=== PATIENT | female | born 1975 | race African-American/Black ===

== ENCOUNTER 2016-09-12 23:36 | Emergency (ER) | payer MEDICARE, MEDICAID ==
[2016-09-12] MEDS ORDERED: diPHENhydraMINE IV* 50 MG/ML 1 ml VIAL (BENADRYL) IV ONE (23:45)
[2016-09-12] MEDS ORDERED: methylPREDNISolone 125 MG* 2 ML VIAL IV ONE (23:45)
[2016-09-12] MEDS ORDERED: Famotidine IV* 10 MG/ML 2 ML (20 mg) ONE (23:46)
[2016-09-12] MEDS ORDERED: diPHENhydraMINE IV* 50 MG/ML 1 ml VIAL (BENADRYL) ONE (23:46)
[2016-09-12] MEDS ORDERED: methylPREDNISolone 125 MG* 2 ML VIAL ONE (23:46)
[2016-09-12] MEDS ORDERED: Famotidine IV* 10 MG/ML 2 ML (20 mg) IV SLOW PU ONE (23:46)
[2016-09-12] MEDS ORDERED: EPINEPHrine AMP 1 MG/ML IM ONE ×2 (23:50→23:53)
[2016-09-12] MEDS ORDERED: EPINEPHrine AMP 1 MG/ML ONE (23:51)
[2016-09-13] MEDS ORDERED: predniSONE TAB* 20 MG PO ONE (03:44)
[2016-09-13] MEDS ORDERED: Famotidine TAB* 20 MG PO ONE (03:45)
[2016-09-13 04:14] VITALS: BP 148/79
--- NOTE | 2016-09-13 07:55 | ED ---
Waqas Avila Rebecca, scribed for Andrea Rainey MD on 09/13/16 at 0000 . Allergic Reaction/Systemic - HPI Summary HPI Summary: Pt is a 41 y/o F who comes to ED p/w allergic reaction c/o difficulty swallowing and throat tightening. Pt reports that at approximately 2230 she bit into a taco and sx suddenly began and have been constant since onset. Took 2 Benadryl at home and has an Epi-Pen but did not use it. Sx aggravated by nothing , alleviated by epinephrine administered in the ED. Denies rash. Documented allergy to sesame oil and nuts. - History of Current Complaint Chief Complaint: EDAllergicReaction Time Seen by Provider: 09/12/16 23:47 Hx Obtained From: Patient Onset/Duration: Sudden Onset, Started hours ago, Still Present Timing: Constant Severity Currently: None Pain Intensity: 0 Pain Scale Used: 0-10 Numeric Aggravating Factor(s): Nothing Alleviating Factor(s): Epinephrine - In the ED Associated Signs And Symptoms: Positive: Throat Tightening, Other: - Difficulty swallowing - Allergies/Home Medications Allergies/Adverse Reactions: Allergies Allergy/AdvReac Type Severity Reaction Status Date / Time Sesame Oil Allergy Anaphylatic Verified 09/12/16 23:49 Shock nuts Allergy Anaphylatic Uncoded 09/12/16 23:49 Shock PMH/Surg Hx/FS Hx/Imm Hx Cardiovascular History: Denies: Hx Coronary Artery Disease Respiratory History: Reports: Hx Asthma, Hx Chronic Obstructive Pulmonary Disease (COPD), Hx Sleep Apnea, Other Respiratory Problems/Disorders - SLEEP APNEA - Surgical History Surgery Procedure, Year, and Place: Lung surgery, unsure what type Hx Anesthesia Reactions: No Infectious Disease History: Denies: Traveled Outside the [place] in Last 30 Days - Family History Known Family History: Positive: Cardiac Disease, Hypertension, Diabetes - Social History Alcohol Use: None Hx Substance Use: No Substance Use Type: Reports: None Hx Tobacco Use: No Smoking Status (MU): Never Smoked Tobacco Review of Systems Positive: Other - Difficulty swallowing, throat tightening Negative: Rash All Other Systems Reviewed And Are Negative: Yes Physical Exam - Summary Physical Exam Summary: eneral: well-appearing, no pain distress Skin: warm, color reflects adequate perfusion, dry Head: normal Eyes: EOMI, RADHA ENT: voice muffled, no stridor, swelling of the tongue and lips Neck: supple, nontender Respiratory: CTA, breath sounds present Cardiovascular: RRR Abdomen: soft, nontender Bowel: present Musculoskeletal: normal, strength/ROM intact Neurological: normal, sensory/motor intact, A&O x3 Psychological: affect/mood appropriate Triage Information Reviewed: Yes Vital Signs On Initial Exam: Initial Vitals Temp Pulse Resp BP Pulse Ox 99.7 F 97 16 168/95 97 09/12/16 23:37 09/12/16 23:37 09/12/16 23:37 09/12/16 23:37 09/12/16 23:37 Vital Signs Reviewed: Yes Diagnostics - Vital Signs Vital Signs Temp Pulse Resp BP Pulse Ox 09/12/16 23:37 99.7 F 97 16 168/95 97 - Laboratory Lab Statement: Any lab studies that have been ordered have been reviewed, and results considered in the medical decision making process. Re-Evaluation - Re-Evaluation First Eval Re-Evaluation Time: 03:30 Change: Improved Allergic Reaction Course/Dx - Course Course Of Treatment: CRITICAL CARE TIME LESS THAN 30 MINUTES. IMPROVED IN ED. DISCHARGE HOME STABLE. - Diagnoses Provider Diagnoses: Allergic reaction Discharge - Discharge Plan Condition: Stable Disposition: HOME Prescriptions: Famotidine TAB* [Pepcid 20 MG TAB*] 20 mg PO BID PRN #8 tab PRN Reason: Allergy Symptoms predniSONE TAB* [Deltasone TAB*] 40 mg PO DAILY PRN #8 tab PRN Reason: Allergy Symptoms Patient Education Materials: General Allergic Reaction (ED) Referrals: Denton Awad NP [Primary Care Provider] - Additional Instructions: FOLLOW UP WITH YOUR DOCTOR. TAKE BENADRYL 50MG EVERY 6 HOURS NEEDED. TAKE PEPCID 20MG TWICE A DAY NEEDED. TAKE PREDNISONE DIRECTED NEEDED. RETURN TO THE EMERGENCY DEPARTMENT FOR ANY WORSENING OF YOUR CONDITION; DIFFICULTY BREATHING OR SWALLOWING OR QUESTIONS OR CONCERNS. The documentation as recorded by the Waqas fernández Rebecca accurately reflects the service I personally performed and the decisions made by me, Andrea Rainey MD.
== END 2016-09-13 04:14 | disposition home or self-care (01) ==
LOC: ED 23:36
DX: T78.1XXA Other adverse food reactions, not elsewhere classified, initial encounter (principal); R13.10 Dysphagia, unspecified; X58.XXXA Exposure to other specified factors, initial encounter; Z91.010 Allergy to peanuts; Z91.018 Allergy to other foods; J44.9 Chronic obstructive pulmonary disease, unspecified
CPT/HCPCS: 96372; 96374; 96375; 99283; A9270-GY; J0171; J1200; J2930; J7512

== ENCOUNTER 2017-07-23 19:11 | Inpatient (IN) | payer MEDICARE, MEDICAID ==
[2017-07-23] MEDS ORDERED: Naloxone* 0.4 MG/ML 10 ML VIAL ONE (19:18)
[2017-07-23] MEDS ORDERED: Succinylcholine* 20 MG/ML 10 ML VIAL ONE (19:19)
[2017-07-23] MEDS ORDERED: Etomidate* 2 MG/ML 20 ML VIAL (40 MG) ONE (19:19)
[2017-07-23] MEDS ORDERED: Albuterol 0.5% CONC NEB.SOL* 5 MG/ML 20 ml BOT INH ONE (19:32)
[2017-07-23 19:36] LABS: Hematocrit 41 % (35-47); Hemoglobin 12.5 g/dl (12.0-16.0); Mean Corpuscular HGB Conc 31 g/dl (31-36); Mean Corpuscular Hemoglobin 25 pg (27-31); Mean Corpuscular Volume 83 fL (80-97); Mean Platelet Volume 9.3 um3 (7.4-10.4); Platelet Count 474 10^3/ul (150-450); Red Blood Count 4.93 10^6/ul (4.0-5.4); Red Cell Distribution Width 15 % (10.5-15); White Blood Count 16.4 10^3/ul (3.5-10.8)
[2017-07-23] MEDS ORDERED: Albuterol/Ipratropium NEB.SOL* Albuterol 2.5 MG/Ipratropium 0.5 MG 3 ML ONE (19:42)
[2017-07-23 19:52] LABS: EGFR Non-African American 65.5 (>60)
[2017-07-23] MEDS ORDERED: Propofol* 0 MG/0 ML BTL ONE (19:54)
[2017-07-23] MEDS ORDERED: Propofol* 200 ML ONE (19:56)
[2017-07-23] MEDS ORDERED: Albuterol 2.5 MG/3 ML NEB.SOL* (0.083%) ONE (19:58)
[2017-07-23] MEDS ORDERED: Propofol* 500 MG/50 ML BTL IV SCH (20:00)
[2017-07-23] MEDS ORDERED: fentaNYL* 50 MCG/ML 2 ML VIAL (100 MCG VIAL) ONE (20:00)
[2017-07-23] MEDS ORDERED: Propofol* 10 MG/ML 100 ML BTL ONE (20:00)
[2017-07-23] MEDS ORDERED: Albuterol/Ipratropium NEB.SOL* Albuterol 2.5 MG/Ipratropium 0.5 MG 3 ML INH ONE (20:02)
[2017-07-23] MEDS ORDERED: Albuterol 2.5 MG/3 ML NEB.SOL* (0.083%) INH ONE (20:02)
[2017-07-23 20:03] LABS: ABS Basophils 0.1 10^3/ul (0-0.2); ABS Eosinophils 0 10^3/ul (0-0.6); ABS Lymphocytes 6.8 10^3/ul (1.0-4.8); ABS Monocytes 1.1 10^3/ul (0-0.8); ABS Neutrophils 8.3 10^3/ul (1.5-7.7); ABS Nucleated RBC 0 10^3/ul; Eosinophil % 0 % (0-6); Lymphocyte % 41.5 % (25-47); Nucleated Red Blood Cells % 0
[2017-07-23] MEDS ORDERED: Midazolam* 1 MG/ML 2 ML VIAL (2 MG) ONE (20:12)
[2017-07-23] MEDS: Midazolam* 1 MG/ML 2 ML VIAL (2 MG) IV PRN ×2 (20:16→22:42)
[2017-07-23] MEDS ORDERED: NS 0.9% 1000 ML*IV.FLUID IV ONE (20:17)
[2017-07-23] MEDS ORDERED: methylPREDNISolone 125 MG* 2 ML VIAL IV ONE (20:20)
[2017-07-23 20:38] LABS: Urine Appearance Cloudy; Urine Blood 1+ (Negative); Urine Color Yellow; Urine Ketones Negative (Negative); Urine Protein 3+(>=500 mg/dL) (Negative); Urine Specific Gravity 1.011 (1.010-1.030); Urine Urobilinogen Negative (Negative)
--- NOTE | 2017-07-23 20:44 | RAD ---
INDICATION: Intubated. Respiratory failure COMPARISON: May 03, 2015 TECHNIQUE: An AP portable view obtained at 1925 hours is submitted. FINDINGS: Bones/Soft Tissues: There are no acute bony findings. There is an endotracheal tube in satisfactory position. Nasogastric tube passes normally through the mediastinum. Cardiomediastinal: The cardiomediastinal silhouette is mildly prominent. Lungs: There are no infiltrates. Pleura: There are no pleural effusions. Other: None IMPRESSION: NO ACTIVE DISEASE. ENDOTRACHEAL TUBE IN SATISFACTORY POSITION.
[2017-07-23] MEDS: NS 0.9% 1000 ML* 1,000 ML IV SCH (21:04)
[2017-07-23] MEDS ORDERED: NS 0.9% 500 ML* 500 ML IV ONE (21:05)
[2017-07-23] MEDS: Albuterol 2.5 MG/3 ML NEB.SOL* (0.083%) INH SCH (21:23)
[2017-07-23] MEDS ORDERED: Omeprazole CAP* 20 MG PO SCH (22:00)
[2017-07-23] MEDS: Propofol* 100 ML IV SCH (22:14)
[2017-07-23] MEDS: methylPREDNISolone SOD 40 MG* 1 ML VIAL IV SCH (22:40)
[2017-07-23] MEDS ORDERED: Dextrose 50% Syringe 50 ML* 25 GM/50 ML SYRINGE IV PUSH PRN (23:37)
--- NOTE | 2017-07-23 23:37 | HP ---
H&P (Free Text) History and Physical: History and Physical - Critical Care Limitations in history/physical: intubated/sedated; history from family, chart HPI: 42y F pmhx of Severe persistent asthma, obesity, YOLANDA on CPAP, s/p Lap- banding; brought in by family due to severe respiratory distress. Sons found her at home in distress, placed her in car and brought her to ER. Before leaving they gave her a shot of SC epinephrine. They are unsure if she had any fever/chills/n/v or recent illness. They are unclear of cough/sob. When reaching ER, she was taken out of care and was unresponsive, possibly cyanotic. Brought into ER and a cardiac arrest code was called, Sons did do some CPR prior to arrival possibly but no CPR needed in ER, so true cardiac arrest unclear. In ER, she had a pulse, bagged, sats in 90s, but poor mental status. Given sedation/induction and intubated by ER physician with glidescope. I attended in the ER, she had diffuse bilateral poor air entry but diffuse long expiratory wheezing+. Started on propofol for sedation, given nebulizer. ABG shows metabolic acidosis compensated partly by respiratory alkalosis. No documented hypoxia. CXR with ett above jonathan, bilateral clear lung troncoso, minimal secretions+ ROS: limited due to patient intubated/sedated PMHx: Severe persistent asthma, obesity, YOLANDA on CPAP PSHx: lung surgery?, tubal ligation, gastric lap-banding Family History: DM, HTN, cardiac disease Social History: Alcohol-none, Smoking-none, Drug use-none Allergies: Allergies Allergy/AdvReac Type Severity Reaction Status Date / Time almond Allergy Anaphylatic Verified 07/23/17 20:18 Shock sesame oil Allergy Anaphylatic Verified 07/23/17 20:18 Shock Tree Nuts Allergy Anaphylatic Verified 04/29/17 12:41 Shock nuts Allergy Anaphylatic Uncoded 04/29/17 12:41 Shock Home Medications: RX: Albuterol 2.5MG/3ML (0.083%)* [Ventolin 2.5 MG/3 ML NEB.QUYNH*] 1 neb.soln INH Q4HR PRN 03/02/16 [History Confirmed 02/12/17] RX: Meclizine TAB* [Antivert 12.5 TAB*] 25 mg PO TID PRN 03/02/16 [History Confirmed 02/12/17] Fluticasone-Salmeterol 500-50* [Advair Diskus 500-50*] 1 puff INH BID #1 diskus 03/03/16 [Rx Confirmed 02/12/17] RX: Albuterol HFA INHALER* [Ventolin HFA Inhaler*] 1 puff INH Q6H PRN #1 mdi [Rx Confirmed 02/12/17] RX: Ferrous Sulfate TAB* 325 mg PO BID #60 tab 03/03/16 [Rx Confirmed 02/12/17] RX: Montelukast Sodium TAB* [Singulair 10 MG TAB*] 10 mg PO DAILY #30 tab [Rx Confirmed 02/12/17] RX: Theophylline TAB* [Kumar Dur 300 MG*] 300 mg PO BID #60 tab.sa 03/03/16 [Rx Confirmed 02/12/17] RX: Tiotropium CAP.INH* [Spiriva CAP.INH*] 1 cap.inh INH DAILY #30 cap.inh 03/03 [Rx Confirmed 02/12/17] Famotidine TAB* [Pepcid 20 MG TAB*] 20 mg PO BID PRN #8 tab 09/13/16 [Rx Confirmed 02/12/17] RX: ARIPiprazole TAB* [Abilify TAB*] 5 mg PO DAILY 01/12/17 [History Confirmed 02/12/17] Sertraline* [Zoloft*] 100 mg PO DAILY 01/12/17 [History Confirmed 02/12/17] Tele: NSR Vitals: Vital Signs Temp 98.1 F 07/23/17 23:01 Pulse 79 07/23/17 23:01 Resp 14 07/23/17 23:00 BP 116/68 07/23/17 23:01 Pulse Ox 96 07/23/17 23:01 Intake & Output 07/23/17 07/23/17 07/24/17 06:59 18:59 06:59 Intake Total 1665 Output Total 350 Balance 1315 Weight 264 lb 8.875 oz Intake: IV Fluids 1555 NS (0.9%) 555 Medicated IV 110 CC - Propofol/Diprivan 110 Output: Chan 350 O2/Vent: AC 50%, rr 16, tv 400 Infusions: NS, propofol Current Medications: Albuterol (Ventolin 2.5 Mg/3 Ml Neb.Quynh*) 2.5 mg INH Q4H [facility] Last Admin: 07/23/17 21:23 Dose: 2.5 mg Propofol (Diprivan*) 100 mls @ 28.8 mls/hr IV .(Initial Rate) BRUCE; 40 MCG/KG/ MIN PRN Reason: Protocol Last Admin: 07/23/17 22:14 Dose: 57.6 mls/hr Sodium Chloride (Ns 0.9% 1000 Ml*) 1,000 mls @ 75 mls/hr IV PER RATE [facility] Last Admin: 07/23/17 21:04 Dose: 75 mls/hr Methylprednisolone Sodium Succinate (Solu-Medrol 40 Mg) 60 mg IV Q8H [facility] Last Admin: 07/23/17 22:40 Dose: 60 mg Midazolam HCl (Versed 2mg/2ml*) 2 mg IV Q2H PRN PRN Reason: resp distress Stop: 07/26/17 19:58 Last Admin: 07/23/17 22:42 Dose: 2 mg Pantoprazole Sodium (Protonix Iv*) 40 mg IV BEDTIME BRUCE Physical Exam: General: intubated, sedated, obese Head: normocephalic, atraumatic HEENT: no pallor, no icterus, moist mucous membranes Neck: soft, supple, no jvd CVS: normal rate, regular, no murmur Resp: distant air entry bilaterally, no rhales, bilateral diffuse exp wheeze++, no rhonchi, +acc muscle use while intubated Abdomen: soft, nontender, nondistended, bowel sounds present Ext: pulses+, warm, no edema Skin: intact, no breakdown, no dryness Neuro: intubated, sedated, moving all ext spontaneously; small bilaterally reactive pupils+ Labs: Laboratory Results - last 24 hr 07/23/17 07/23/17 07/23/17 19:15 19:15 19:20 WBC 16.4 H RBC 4.93 Hgb 12.5 Hct 41 MCV 83 MCH 25 L MCHC 31 RDW 15 Plt Count 474 H MPV 9.3 Neut % (Auto) 51.0 Lymph % (Auto) 41.5 [facility] % (Auto) 6.9 Eos % (Auto) 0 Baso % (Auto) 0.6 Absolute Neuts (auto) 8.3 H Absolute Lymphs (auto) 6.8 H Absolute Monos (auto) 1.1 H Absolute Eos (auto) 0 Absolute Basos (auto) 0.1 Absolute Nucleated RBC 0 Nucleated RBC % 0 Patient Temperature ABG pH ABG pH (Temp Correct) ABG pCO2 ABG pCO2 (Temp Corrct ABG pO2 ABG pO2 (Temp Correct ABG HCO3 ABG O2 Saturation ABG Base Excess Respiration Rate O2 Delivery Device Ventilator Type Vent Mode FiO2 Inspiratory Time PEEP Pressure Support Pressure Control EPAP IPAP BiPAP Sodium 137 L Potassium 3.7 Chloride 100 L Carbon Dioxide 22 Anion Gap 15 H BUN 11 Creatinine 0.93 Est GFR ( Amer) 84.2 Est GFR (Non-Af Amer) 65.5 BUN/Creatinine Ratio 11.8 Glucose 270 H POC Glucose (mg/dL) 278 H Lactic Acid Calcium 8.9 Total Bilirubin 0.20 AST 35 ALT 35 Alkaline Phosphatase 61 Troponin I 0.00 Total Protein 7.1 Albumin 4.1 Globulin 3.0 Albumin/Globulin Ratio 1.4 Urine Color Urine Appearance Urine pH Ur Specific [place] Urine Protein Urine Ketones Urine Blood Urine Nitrate Urine Bilirubin Urine Urobilinogen Ur Leukocyte Esterase Urine WBC (Auto) Urine RBC (Auto) Ur Squamous Epith Cells Urine Bacteria Urine Glucose Urine Opiates Screen Ur Barbiturates Screen Ur Phencyclidine Scrn Ur Amphetamines Screen U Benzodiazepines Scrn Urine Cocaine Screen U Cannabinoids Screen 07/23/17 07/23/17 07/23/17 19:25 20:10 20:12 WBC RBC Hgb Hct MCV MCH MCHC RDW Plt Count MPV Neut % (Auto) Lymph % (Auto) [facility] % (Auto) Eos % (Auto) Baso % (Auto) Absolute Neuts (auto) Absolute Lymphs (auto) Absolute Monos (auto) Absolute Eos (auto) Absolute Basos (auto) Absolute Nucleated RBC Nucleated RBC % Patient Temperature Not Reportable ABG pH 7.17 L* ABG pH (Temp Correct) Not Reportable ABG pCO2 58 H ABG pCO2 (Temp Corrct Not Reportable ABG pO2 215 H ABG pO2 (Temp Correct Not Reportable ABG HCO3 19.0 ABG O2 Saturation 99.6 H ABG Base Excess -7.6 L Respiration Rate 10 O2 Delivery Device vent Ventilator Type 450 Vent Mode cmv FiO2 50 Inspiratory Time 0.8 PEEP 5 Pressure Support Not Reportable Pressure Control Not Reportable EPAP Not Reportable IPAP Not Reportable BiPAP Not Reportable Sodium Potassium Chloride Carbon Dioxide Anion Gap BUN Creatinine Est GFR ( Amer) Est GFR (Non-Af Amer) BUN/Creatinine Ratio Glucose POC Glucose (mg/dL) Lactic Acid 10.3 H* Calcium Total Bilirubin AST ALT Alkaline Phosphatase Troponin I Total Protein Albumin Globulin Albumin/Globulin Ratio Urine Color Yellow Urine Appearance Cloudy Urine pH 6.0 Ur Specific [place] 1.011 Urine Protein 3+(>=500 mg/dl) A Urine Ketones Negative Urine Blood 1+ A Urine Nitrate Negative Urine Bilirubin Negative Urine Urobilinogen Negative Ur Leukocyte Esterase Negative Urine WBC (Auto) 2+(11-20/hpf) A Urine RBC (Auto) 2+(6-10/hpf) A Ur Squamous Epith Cells Present A Urine Bacteria Absent Urine Glucose 3+(>=500 mg/dl) A Urine Opiates Screen Ur Barbiturates Screen Ur Phencyclidine Scrn Ur Amphetamines Screen U Benzodiazepines Scrn Urine Cocaine Screen U Cannabinoids Screen 07/23/17 20:12 WBC RBC Hgb Hct MCV MCH MCHC RDW Plt Count MPV Neut % (Auto) Lymph % (Auto) [facility] % (Auto) Eos % (Auto) Baso % (Auto) Absolute Neuts (auto) Absolute Lymphs (auto) Absolute Monos (auto) Absolute Eos (auto) Absolute Basos (auto) Absolute Nucleated RBC Nucleated RBC % Patient Temperature ABG pH ABG pH (Temp Correct) ABG pCO2 ABG pCO2 (Temp Corrct ABG pO2 ABG pO2 (Temp Correct ABG HCO3 ABG O2 Saturation ABG Base Excess Respiration Rate O2 Delivery Device Ventilator Type Vent Mode FiO2 Inspiratory Time PEEP Pressure Support Pressure Control EPAP IPAP BiPAP Sodium Potassium Chloride Carbon Dioxide Anion Gap BUN Creatinine Est GFR ( Amer) Est GFR (Non-Af Amer) BUN/Creatinine Ratio Glucose POC Glucose (mg/dL) Lactic Acid Calcium Total Bilirubin AST ALT Alkaline Phosphatase Troponin I Total Protein Albumin Globulin Albumin/Globulin Ratio Urine Color Urine Appearance Urine pH Ur Specific [place] Urine Protein Urine Ketones Urine Blood Urine Nitrate Urine Bilirubin Urine Urobilinogen Ur Leukocyte Esterase Urine WBC (Auto) Urine RBC (Auto) Ur Squamous Epith Cells Urine Bacteria Urine Glucose Urine Opiates Screen None detected Ur Barbiturates Screen None detected Ur Phencyclidine Scrn None detected Ur Amphetamines Screen None detected U Benzodiazepines Scrn None detected Urine Cocaine Screen None detected U Cannabinoids Screen None detected Imaging: cxr 07/23 ett above jonathan, no infiltrates/effusions/ptx Assessment: 42y F pmhx of Severe persistent asthma, obesity, YOLANDA on CPAP, s/p Lap-banding; brought in by family due to severe respiratory distress. Sons found her at home in distress, placed her in car and brought her to ER. Before leaving they gave her a shot of [place] epinephrine. They are unsure if she had any fever/chills/n/v or recent illness. They are unclear of cough/sob. When reaching ER, she was taken out of care and was unresponsive, possibly cyanotic. Brought into ER and a cardiac arrest code was called, Sons did do some CPR prior to arrival possibly but no CPR needed in ER, so true cardiac arrest unclear. In ER, she had a pulse, bagged, sats in 90s, but poor mental status. Given sedation/induction and intubated by ER physician with glidescope. I attended in the ER, she had diffuse bilateral poor air entry but diffuse long expiratory wheezing+. -Acute hypercapneic respiratory failure -Asthma Exaccerbation -Lactic acidosis from respiratory failure -Leukocytosis Obesity YOLANDA Plan: Neuro- currently sedated on propofol and prn versed. Likely was unresponsive due to metabolic encephalopathy from metabolic/respiratory acidosis. Cont propofol tonight, plan to wean in AM. Fall prec. CVS- BP stable now. HR stable, NSR. IVF NS 100cc/hour for now. Blood cultures+, urine culture. Appears euvolemic otherwise. Check troponin levels. Resp- cont mechanical ventilation, fio2 req decreasing. Currently compensated metabolic acidosis, has resp alkalosis incomplete. Send blood and sputum culture. Solumedrol 125mg iv x1, then 60mg iv q8h. Bronchodilators q4h RTC. Check influenza. No infiltrate on CXR, send sputum culture. IV abx helpd for now. ID- afebrile. Wbc 16. Reactive process? Urinalysis without LE. CXR clear. Started on steroids now. Would cont to monitor given stable hemodynamics. will r /o underlying infectious etiology. GI- NPO. GI prophlaxis while on steroids. Renal- Cr okay. K okay. Metabolic acidosis from high LA which is prob from poor perfusion and hypoxia from respiratory failure. Cont nebs and steroids. Cont LR infusion as prior. Heme- hg okay, plt okay. Check INR in AM. Endo- hyperglycemia with glycosuria+. Check hga1c and TSH. Start insulin sliding scale for now, may need insulin IV. Musculsk- pressure ulcer proph. Wounds- none Nutrition- NPO for now DVT prophylaxis: SCDs GI prophylaxis: PPI Central Line: no Arterial Line: no Chan Cathetor: yes 07/23 Disposition: admit to ICU for respiratory failure expected length of stay >2 midnights Code Status: full code Total Critical Care time is 60 minutes, excluding procedures/teaching Juliocesar Villegas MD Civil Service Clerk (Electronically Signed)
[2017-07-24] MEDS: Propofol* 100 ML IV SCH ×10 (00:27→22:08)
[2017-07-24] MEDS: Pantoprazole IV* 40 MG IV SCH ×2 (01:01→20:30)
[2017-07-24] MEDS: Chlorhexidine MOUTHWASH 0.12%* 15 ML UDC TOPICAL SCH ×6 (01:01→20:30)
[2017-07-24] MEDS: Albuterol 2.5 MG/3 ML NEB.SOL* (0.083%) INH SCH ×7 (01:24→23:51)
[2017-07-24] MEDS: Insulin LISPRO* 1 UNITS UNIT SUBCUT SCH ×6 (01:31→20:17)
[2017-07-24] MEDS: Midazolam* 1 MG/ML 2 ML VIAL (2 MG) IV PRN ×2 (02:11→19:54)
[2017-07-24] MEDS: NS 0.9% 1000 ML* 1,000 ML IV SCH ×2 (03:36→18:11)
[2017-07-24] MEDS ORDERED: Dexmedetomidine* 400 MCG in NS 0.9% 100 ML* 96 ML IVPB SCH (04:00)
[2017-07-24] MEDS: methylPREDNISolone SOD 40 MG* 1 ML VIAL IV SCH ×3 (04:41→20:30)
[2017-07-24 06:17] LABS: Hematocrit 35 % (35-47); Hemoglobin 11.2 g/dl (12.0-16.0); Mean Corpuscular HGB Conc 32 g/dl (31-36); Mean Corpuscular Hemoglobin 25 pg (27-31); Mean Corpuscular Volume 79 fL (80-97); Mean Platelet Volume 9.1 um3 (7.4-10.4); Platelet Count 344 10^3/ul (150-450); Red Blood Count 4.41 10^6/ul (4.0-5.4); Red Cell Distribution Width 15 % (10.5-15)
[2017-07-24 06:27] LABS: EGFR Non-African American 110.7 (>60)
[2017-07-24 06:33] LABS: INR 0.94 (0.77-1.02)
--- NOTE | 2017-07-24 10:25 | PN ---
Progress Note - Progress Note Date of Service: 07/24/17 Note: Progress Note - Critical Care 24 hour events: -admitted to ICU via ER, resp failure, intubated in ER -overnight remains intubated, on increased sedation for restless ness -no sig overnight events otherwise, BP stable, no fevers, no diarrhea -family at bedside and discussed history -currently patient sedated on propofol and precedex Tele: NSR Vitals: Vital Signs Temp 98.6 F 07/24/17 10:00 Pulse 59 07/24/17 10:00 Resp 26 07/24/17 10:00 BP 103/82 07/24/17 10:00 Pulse Ox 98 07/24/17 10:00 Intake & Output 07/23/17 07/24/17 07/24/17 18:59 06:59 18:59 Intake Total 2652 Output Total 1035 510 Balance 1617 -510 Weight 255 lb 4.725 oz Intake: IV Fluids 2153 NS (0.9%) 1153 Medicated IV 499 CC - Dexmedetomidine/ 18 Precedex CC - Propofol/Diprivan 481 Output: Chan 1035 510 O2/Vent: AC 50%, rr 16, tv 400 Infusions: NS, propofol, precedex Current Medications: Albuterol (Ventolin 2.5 Mg/3 Ml Neb.Tiffanie*) 2.5 mg INH Q4H BRUCE Last Admin: 07/24/17 08:11 Dose: 2.5 mg Chlorhexidine Gluconate (Peridex Mouth Wash 0.12%*) 15 ml TOPICAL Q4H BRUCE Last Admin: 07/24/17 07:46 Dose: 15 ml Dextrose (D50w Syringe 50 Ml*) 12.5 gm IV PUSH .FOR FS < 60 - SS PRN PRN Reason: FS < 60 Propofol (Diprivan*) 100 mls @ 28.8 mls/hr IV .(Initial Rate) BRUCE; 40 MCG/KG/ MIN PRN Reason: Protocol Last Admin: 07/24/17 08:59 Dose: 40.3 mls/hr Sodium Chloride (Ns 0.9% 1000 Ml*) 1,000 mls @ 75 mls/hr IV PER RATE BRUCE Last Admin: 07/24/17 03:36 Dose: 75 mls/hr Dexmedetomidine HCl 400 mcg/ (Sodium Chloride) 100 mls @ 14.08 mls/hr IVPB .( Initial Rate) BRUCE; 0.5 MCG/KG/HR PRN Reason: Protocol Last Admin: 07/24/17 04:55 Dose: 14.08 mls/hr Insulin Human Lispro (Humalog*) 0 units SUBCUT FS Q4 ICU BRUCE PRN Reason: Protocol Last Admin: 07/24/17 07:56 Dose: 3 units Methylprednisolone Sodium Succinate (Solu-Medrol 40 Mg) 60 mg IV Q8H BRUCE Last Admin: 07/24/17 04:41 Dose: 60 mg Midazolam HCl (Versed 2mg/2ml*) 2 mg IV Q2H PRN PRN Reason: resp distress Stop: 07/26/17 19:58 Last Admin: 07/24/17 02:11 Dose: 2 mg Pantoprazole Sodium (Protonix Iv*) 40 mg IV BEDTIME [facility] Last Admin: 07/24/17 01:01 Dose: 40 mg Physical Exam: General: intubated, sedated, obese Head: normocephalic, atraumatic HEENT: no pallor, no icterus, moist mucous membranes Neck: soft, supple, no jvd CVS: normal rate, regular, no murmur Resp: bilateral air entry, no rhales/rhonchi/wheezing, no acc muscle use Abdomen: soft, nontender, nondistended, bowel sounds present Ext: pulses+, warm, no edema Skin: intact, no breakdown, no dryness Neuro: intubated, sedated, pupils reactive; on lower sedation wakes and follows commands Labs: Laboratory Results - last 24 hr 07/23/17 07/23/17 07/23/17 19:15 19:15 19:20 WBC 16.4 H RBC 4.93 Hgb 12.5 Hct 41 MCV 83 MCH 25 L MCHC 31 RDW 15 Plt Count 474 H MPV 9.3 Neut % (Auto) 51.0 Lymph % (Auto) 41.5 [place] % (Auto) 6.9 Eos % (Auto) 0 Baso % (Auto) 0.6 Absolute Neuts (auto) 8.3 H Absolute Lymphs (auto) 6.8 H Absolute Monos (auto) 1.1 H Absolute Eos (auto) 0 Absolute Basos (auto) 0.1 Absolute Nucleated RBC 0 Nucleated RBC % 0 INR (Anticoag Therapy) APTT Patient Temperature ABG pH ABG pH (Temp Correct) ABG pCO2 ABG pCO2 (Temp Corrct ABG pO2 ABG pO2 (Temp Correct ABG HCO3 ABG O2 Saturation ABG Base Excess Respiration Rate O2 Delivery Device Ventilator Type Vent Mode FiO2 Inspiratory Time PEEP Pressure Support Pressure Control EPAP IPAP BiPAP Sodium 137 L Potassium 3.7 Chloride 100 L Carbon Dioxide 22 Anion Gap 15 H BUN 11 Creatinine 0.93 Est GFR ( Amer) 84.2 Est GFR (Non-Af Amer) 65.5 BUN/Creatinine Ratio 11.8 Glucose 270 H POC Glucose (mg/dL) 278 H Lactic Acid Calcium 8.9 Total Bilirubin 0.20 AST 35 ALT 35 Alkaline Phosphatase 61 Troponin I 0.00 Total Protein 7.1 Albumin 4.1 Globulin 3.0 Albumin/Globulin Ratio 1.4 TSH Urine Color Urine Appearance Urine pH Ur Specific [place] Urine Protein Urine Ketones Urine Blood Urine Nitrate Urine Bilirubin Urine Urobilinogen Ur Leukocyte Esterase Urine WBC (Auto) Urine RBC (Auto) Ur Squamous Epith Cells Urine Bacteria Urine Glucose Urine Opiates Screen Ur Barbiturates Screen Ur Phencyclidine Scrn Ur Amphetamines Screen U Benzodiazepines Scrn Urine Cocaine Screen U Cannabinoids Screen Influenza A (Rapid) Influenza B (Rapid) 07/23/17 07/23/17 07/23/17 19:25 20:10 20:12 WBC RBC Hgb Hct MCV MCH MCHC RDW Plt Count MPV Neut % (Auto) Lymph % (Auto) [place] % (Auto) Eos % (Auto) Baso % (Auto) Absolute Neuts (auto) Absolute Lymphs (auto) Absolute Monos (auto) Absolute Eos (auto) Absolute Basos (auto) Absolute Nucleated RBC Nucleated RBC % INR (Anticoag Therapy) APTT Patient Temperature Not Reportable ABG pH 7.17 L* ABG pH (Temp Correct) Not Reportable ABG pCO2 58 H ABG pCO2 (Temp Corrct Not Reportable ABG pO2 215 H ABG pO2 (Temp Correct Not Reportable ABG HCO3 19.0 ABG O2 Saturation 99.6 H ABG Base Excess -7.6 L Respiration Rate 10 O2 Delivery Device vent Ventilator Type 450 Vent Mode cmv FiO2 50 Inspiratory Time 0.8 PEEP 5 Pressure Support Not Reportable Pressure Control Not Reportable EPAP Not Reportable IPAP Not Reportable BiPAP Not Reportable Sodium Potassium Chloride Carbon Dioxide Anion Gap BUN Creatinine Est GFR ( Amer) Est GFR (Non-Af Amer) BUN/Creatinine Ratio Glucose POC Glucose (mg/dL) Lactic Acid 10.3 H* Calcium Total Bilirubin AST ALT Alkaline Phosphatase Troponin I Total Protein Albumin Globulin Albumin/Globulin Ratio TSH Urine Color Yellow Urine Appearance Cloudy Urine pH 6.0 Ur Specific [place] 1.011 Urine Protein 3+(>=500 mg/dl) A Urine Ketones Negative Urine Blood 1+ A Urine Nitrate Negative Urine Bilirubin Negative Urine Urobilinogen Negative Ur Leukocyte Esterase Negative Urine WBC (Auto) 2+(11-20/hpf) A Urine RBC (Auto) 2+(6-10/hpf) A Ur Squamous Epith Cells Present A Urine Bacteria Absent Urine Glucose 3+(>=500 mg/dl) A Urine Opiates Screen Ur Barbiturates Screen Ur Phencyclidine Scrn Ur Amphetamines Screen U Benzodiazepines Scrn Urine Cocaine Screen U Cannabinoids Screen Influenza A (Rapid) Influenza B (Rapid) 07/23/17 07/24/17 07/24/17 20:12 00:00 00:50 WBC RBC Hgb Hct MCV MCH MCHC RDW Plt Count MPV Neut % (Auto) Lymph % (Auto) [place] % (Auto) Eos % (Auto) Baso % (Auto) Absolute Neuts (auto) Absolute Lymphs (auto) Absolute Monos (auto) Absolute Eos (auto) Absolute Basos (auto) Absolute Nucleated RBC Nucleated RBC % INR (Anticoag Therapy) APTT Patient Temperature Not Reportable ABG pH 7.30 L ABG pH (Temp Correct) Not Reportable ABG pCO2 53 H ABG pCO2 (Temp Corrct Not Reportable ABG pO2 199 H ABG pO2 (Temp Correct Not Reportable ABG HCO3 24.2 ABG O2 Saturation 99.4 H ABG Base Excess -0.9 Respiration Rate 10 O2 Delivery Device vent Ventilator Type 450 Vent Mode Cmv FiO2 50 Inspiratory Time 0.8 PEEP 5 Pressure Support Not Reportable Pressure Control Not Reportable EPAP Not Reportable IPAP Not Reportable BiPAP Not Reportable Sodium Potassium Chloride Carbon Dioxide Anion Gap BUN Creatinine Est GFR ( Amer) Est GFR (Non-Af Amer) BUN/Creatinine Ratio Glucose POC Glucose (mg/dL) Lactic Acid 1.0 Calcium Total Bilirubin AST ALT Alkaline Phosphatase Troponin I Total Protein Albumin Globulin Albumin/Globulin Ratio TSH Urine Color Urine Appearance Urine pH Ur Specific [place] Urine Protein Urine Ketones Urine Blood Urine Nitrate Urine Bilirubin Urine Urobilinogen Ur Leukocyte Esterase Urine WBC (Auto) Urine RBC (Auto) Ur Squamous Epith Cells Urine Bacteria Urine Glucose Urine Opiates Screen None detected Ur Barbiturates Screen None detected Ur Phencyclidine Scrn None detected Ur Amphetamines Screen None detected U Benzodiazepines Scrn None detected Urine Cocaine Screen None detected U Cannabinoids Screen None detected Influenza A (Rapid) Influenza B (Rapid) 07/24/17 07/24/17 07/24/17 00:50 01:08 04:08 WBC RBC Hgb Hct MCV MCH MCHC RDW Plt Count MPV Neut % (Auto) Lymph % (Auto) [place] % (Auto) Eos % (Auto) Baso % (Auto) Absolute Neuts (auto) Absolute Lymphs (auto) Absolute Monos (auto) Absolute Eos (auto) Absolute Basos (auto) Absolute Nucleated RBC Nucleated RBC % INR (Anticoag Therapy) APTT Patient Temperature ABG pH ABG pH (Temp Correct) ABG pCO2 ABG pCO2 (Temp Corrct ABG pO2 ABG pO2 (Temp Correct ABG HCO3 ABG O2 Saturation ABG Base Excess Respiration Rate O2 Delivery Device Ventilator Type Vent Mode FiO2 Inspiratory Time PEEP Pressure Support Pressure Control EPAP IPAP BiPAP Sodium Potassium Chloride Carbon Dioxide Anion Gap BUN Creatinine Est GFR ( Amer) Est GFR (Non-Af Amer) BUN/Creatinine Ratio Glucose POC Glucose (mg/dL) 138 H 151 H Lactic Acid Calcium Total Bilirubin AST ALT Alkaline Phosphatase Troponin I 0.11 H* Total Protein Albumin Globulin Albumin/Globulin Ratio TSH Urine Color Urine Appearance Urine pH Ur Specific [place] Urine Protein Urine Ketones Urine Blood Urine Nitrate Urine Bilirubin Urine Urobilinogen Ur Leukocyte Esterase Urine WBC (Auto) Urine RBC (Auto) Ur Squamous Epith Cells Urine Bacteria Urine Glucose Urine Opiates Screen Ur Barbiturates Screen Ur Phencyclidine Scrn Ur Amphetamines Screen U Benzodiazepines Scrn Urine Cocaine Screen U Cannabinoids Screen Influenza A (Rapid) Influenza B (Rapid) 07/24/17 07/24/17 07/24/17 05:03 05:35 05:53 WBC RBC Hgb Hct MCV MCH MCHC RDW Plt Count MPV Neut % (Auto) Lymph % (Auto) [place] % (Auto) Eos % (Auto) Baso % (Auto) Absolute Neuts (auto) Absolute Lymphs (auto) Absolute Monos (auto) Absolute Eos (auto) Absolute Basos (auto) Absolute Nucleated RBC Nucleated RBC % INR (Anticoag Therapy) 0.94 APTT 27.5 Patient Temperature Not Reportable ABG pH 7.31 L ABG pH (Temp Correct) Not Reportable ABG pCO2 51 H ABG pCO2 (Temp Corrct Not Reportable ABG pO2 193 H ABG pO2 (Temp Correct Not Reportable ABG HCO3 24.2 ABG O2 Saturation 99.8 H ABG Base Excess -1.0 Respiration Rate 10 O2 Delivery Device vent Ventilator Type 450 Vent Mode Cmv FiO2 50 Inspiratory Time 0.8 PEEP 5 Pressure Support Not Reportable Pressure Control Not Reportable EPAP Not Reportable IPAP Not Reportable BiPAP Not Reportable Sodium Potassium Chloride Carbon Dioxide Anion Gap BUN Creatinine Est GFR ( Amer) Est GFR (Non-Af Amer) BUN/Creatinine Ratio Glucose POC Glucose (mg/dL) Lactic Acid Calcium Total Bilirubin AST ALT Alkaline Phosphatase Troponin I Total Protein Albumin Globulin Albumin/Globulin Ratio TSH Urine Color Urine Appearance Urine pH Ur Specific [place] Urine Protein Urine Ketones Urine Blood Urine Nitrate Urine Bilirubin Urine Urobilinogen Ur Leukocyte Esterase Urine WBC (Auto) Urine RBC (Auto) Ur Squamous Epith Cells Urine Bacteria Urine Glucose Urine Opiates Screen Ur Barbiturates Screen Ur Phencyclidine Scrn Ur Amphetamines Screen U Benzodiazepines Scrn Urine Cocaine Screen U Cannabinoids Screen Influenza A (Rapid) Negative Influenza B (Rapid) Negative 07/24/17 07/24/17 07/24/17 05:53 05:53 07:50 WBC 14.0 H RBC 4.41 Hgb 11.2 L Hct 35 MCV 79 L MCH 25 L MCHC 32 RDW 15 Plt Count 344 MPV 9.1 Neut % (Auto) Lymph % (Auto) [place] % (Auto) Eos % (Auto) Baso % (Auto) Absolute Neuts (auto) Absolute Lymphs (auto) Absolute Monos (auto) Absolute Eos (auto) Absolute Basos (auto) Absolute Nucleated RBC Nucleated RBC % INR (Anticoag Therapy) APTT Patient Temperature ABG pH ABG pH (Temp Correct) ABG pCO2 ABG pCO2 (Temp Corrct ABG pO2 ABG pO2 (Temp Correct ABG HCO3 ABG O2 Saturation ABG Base Excess Respiration Rate O2 Delivery Device Ventilator Type Vent Mode FiO2 Inspiratory Time PEEP Pressure Support Pressure Control EPAP IPAP BiPAP Sodium 138 L Potassium 3.8 Chloride 107 Carbon Dioxide 25 Anion Gap 6 BUN 9 Creatinine 0.59 Est GFR ( Amer) 142.4 Est GFR (Non-Af Amer) 110.7 BUN/Creatinine Ratio 15.3 Glucose 148 H POC Glucose (mg/dL) 158 H Lactic Acid Calcium 7.8 L Total Bilirubin AST ALT Alkaline Phosphatase Troponin I 0.13 H* Total Protein Albumin Globulin Albumin/Globulin Ratio TSH 0.35 Urine Color Urine Appearance Urine pH Ur Specific [place] Urine Protein Urine Ketones Urine Blood Urine Nitrate Urine Bilirubin Urine Urobilinogen Ur Leukocyte Esterase Urine WBC (Auto) Urine RBC (Auto) Ur Squamous Epith Cells Urine Bacteria Urine Glucose Urine Opiates Screen Ur Barbiturates Screen Ur Phencyclidine Scrn Ur Amphetamines Screen U Benzodiazepines Scrn Urine Cocaine Screen U Cannabinoids Screen Influenza A (Rapid) Influenza B (Rapid) Imaging: cxr 07/23 ett above jonathan, no infiltrates/effusions/ptx Assessment: 42y F pmhx of Severe persistent asthma, obesity, YOLANDA on CPAP, s/p Lap-banding; brought in by family due to severe respiratory distress. Sons found her at home in distress, placed her in car and brought her to ER. Before leaving they gave her a shot of [place] epinephrine. They are unsure if she had any fever/chills/n/v or recent illness. They are unclear of cough/sob. When reaching ER, she was taken out of care and was unresponsive, possibly cyanotic. Brought into ER and a cardiac arrest code was called, Sons did do some CPR prior to arrival possibly but no CPR needed in ER, so true cardiac arrest unclear. In ER, she had a pulse, bagged, sats in 90s, but poor mental status. Given sedation/induction and intubated by ER physician with glidescope. I attended in the ER, she had diffuse bilateral poor air entry but diffuse long expiratory wheezing+. -Acute hypercapneic respiratory failure -likely acute hypoxic respiratory failure in field -Asthma Exaccerbation -Lactic acidosis from respiratory failure -Leukocytosis Obesity YOLANDA Plan: Neuro- maintain sedation with propofol and precedex, raas -1 to -2. FOllows commands on lower sedation. CVS- BP stable. HR stable, no arrythmia noted, NSR. IVF NS 100cc/hour for now. trop so far upto 0.13, ekg yesterday nsr with prolonged qtc and tall/abnormal Twaves. Repeat EKG now. unclear if this resp distress could be a cardiac event illicited. obtain echo. if abnormal ekg still, will have cardiology eval also. asa 325mg x1 now, then 81mg daily. May require systemic AC, re-eval after further testing. No abx, wbc 14, nontoxic. appears euvolemic. IVF nS 50cc/hour Resp- Intubated, 50% fio2. no distress. no secretions. wheezing resolved. CXR clear of infiltrate. Cont solumedrol 60mg iv q8h. Bronchodilators q4h RTC. INfluenza neg. No clear source of infectious etiology, reactive wbc elevation? ID- afebrile. Wbc 14. Reactive process? CXR clear. Urinarlysis negative. Holding Abx. On steroids now which will elevated wbc. Cultures in process, influenza neg. GI- NPO. GI prophlaxis while on steroids. Renal- Cr okay. K okay. Metabolic acidosis resolved, but she has higher bicarbs in past, some mixed metabolic and resp acidosis picture. Improving otherwise. Cont NS 50cc/hour. Heme- hg okay, baseline anemia fluctuates, hg 11-12 range earlier too, will monitor. plt okay. Endo- hyperglycemia with glycosuria+. pending hga1c and TSH. insulin sliding scale. Musculsk- pressure ulcer proph. Wounds- none Nutrition- NPO for now DVT prophylaxis: SCDs GI prophylaxis: PPI Central Line: no Arterial Line: no Chan Cathetor: yes 07/23 Disposition: ICU for respiratory failure Code Status: full code Total Critical Care time is 40 minutes, excluding procedures/teaching Juliocesar Villegas MD Recovery Manager (Electronically Signed)
[2017-07-24] MEDS ORDERED: Aspirin TAB* 325 MG PO ONE (10:28)
[2017-07-24] MEDS: Dexmedetomidine* 400 MCG in NS 0.9% 100 ML* 96 ML IVPB SCH ×2 (11:08→18:10)
[2017-07-24] MEDS ORDERED: Enoxaparin(*) 150 MG/ML 1 ML SYRINGE SUBCUT SCH (12:00)
[2017-07-24] MEDS ORDERED: Iohexol 350* (CONTRAST) 500 ML MDV IV ONE (16:22)
--- NOTE | 2017-07-24 18:15 | RAD ---
HISTORY: Respiratory failure COMPARISONS: None TECHNIQUE: Multiple contiguous axial CT scans of the chest were obtained after the administration of nonionic intravenous contrast, timed to the pulmonary arterial phase of contrast enhancement.. Coronal and sagittal multiplanar reformations are also submitted for review. FINDINGS: Evaluation is limited by patient breathing motion artifact. NECK AND THYROID: The lower neck and thyroid are unremarkable. CHEST WALL: There is no lower cervical, axillary, or supraclavicular lymphadenopathy by size criteria. HEART AND PERICARDIUM: The heart is unremarkable. AORTA AND PULMONARY VASCULATURE: Evaluation of the segmental branches to the lower lobes is limited by patient breathing motion artifact. Within the limitations of the study, there is no pulmonary arterial filling defect to suggest pulmonary embolism. The aorta is unremarkable for phase of contrast administration MEDIASTINUM: There is no mediastinal lymphadenopathy by size criteria. SEAN: There is no hilar lymphadenopathy by size criteria. AIRWAY AND ESOPHAGUS: An endotracheal tube is noted with the tip in the esophagus between the clavicles and the jonathan. A gastric tube is noted with the tip below the [id number] the current examination. LUNG PARENCHYMA: Evaluation limited by patient breathing motion artifact. There is a nodule of the left lower lobe on axial image 34 measuring 0.4 cm. PLEURA: No pleural abnormalities are noted. UPPER ABDOMEN: A gastric band is noted. BONES AND SOFT TISSUES: Mild degenerative changes are noted.. OTHER: None. IMPRESSION: 1. EVALUATION IS LIMITED BY PATIENT BREATHING MOTION ARTIFACT. 2. WITHIN THE LIMITATIONS OF THE STUDY, NO PULMONARY ARTERIAL FILLING DEFECT TO SUGGEST PULMONARY EMBOLISM. 3. 0.4 CM NODULE OF THE LEFT LOWER LOBE. THE RECOMMENDATIONS FOR FOLLOWUP AND MANAGEMENT OF AN INCIDENTALLY DETECTED PULMONARY NODULE LESS THAN 6 MM IN SIZE, IN A PATIENT WITHOUT A HISTORY OF MALIGNANCY, INCLUDE NO FOLLOWUP FOR A LOW-RISK PATIENT OR OPTIONAL FOLLOWUP CT IN 12 MONTHS FOR A HIGH RISK PATIENT. NOTES: SIZE = AVERAGE LENGTH AND WIDTH; HIGH RISK IS DEFINED A HISTORY OF SMOKING OR OTHER KNOW RISK FACTORS FOR LUNG CANCER; LOW RISK IS DEFINED MINIMAL OR ABSENT HISTORY OF SMOKING OR OTHER KNOWN RISK FACTORS. Ajay Valdez, NNEKA Tuttle, SWATI East, et al (2017) "Guidelines for Management of Incidental Pulmonary Nodules Detected on CT Images: From the Fleischner Society 2017." Radiology; 284(1): 228-243. doi:10.1148/radiol.4090251283
--- NOTE | 2017-07-24 20:23 | CONS ---
CARDIOLOGY CONSULTATION REPORT: DATE OF CONSULT: 07/24/17 REFERRING PHYSICIAN: Dr. Juliocesar Villegas. REASON FOR CARDIOLOGY CONSULT: Respiratory failure with EKG changes and elevated troponin. HISTORY OF PRESENT ILLNESS: I was kindly asked by Dr. Villegas to see this patient admitted with respiratory failure, currently being mechanically ventilated, who has mild troponin elevation of 0.11 to 0.13 and concern for peak T-waves on her EKG. The patient is currently intubated, mechanically ventilated and sedated. She is unable to provide history. Per chart review, the patient was found at her home in severe respiratory distress, brought to the emergency room and was intubated. PAST MEDICAL HISTORY: Reportedly significant for severe persistent asthma, obesity, YOLANDA, on CPAP. OUTPATIENT MEDICATIONS: Unknown. ALLERGIES: Per chart review, TREE NUTS, SESAME OIL, ALMONDS. FAMILY HISTORY: Unable to obtain. SOCIAL HISTORY: Unable to obtain. REVIEW OF SYSTEMS: Unable to obtain. PHYSICAL EXAM: Height 5 feet 4 inches, weight 255 pounds, temperature 98.8 degrees Fahrenheit, pulse 55, O2 saturation 98%, blood pressure 126/77. On general exam, she is pleasant, overweight lady, sedated and mechanically ventilated. HEENT shows the cranium is normocephalic and atraumatic. She has dry mucosal membranes. Neck veins unable to assess. No carotid bruits. Visible skin dry, does appear perfused. No significant kyphoscoliosis on back exam. Lungs reveal bilateral clear to auscultation anteriorly. No wheezes, no rhonchi. Cardiac Exam: S1, S2, regular rate, soft three component pericardial friction rub heard. There is no gallop, no murmur. PMI is nondisplaced. Abdomen: Soft, obese, appears benign. Extremities: With no more than trivial peripheral edema, likely dependent. Pulses appear grossly intact. DIAGNOSTIC STUDIES/LAB DATA: White blood cell count 14, hematocrit 35, platelet count 344. INR 0.94. Sodium 138, potassium 3.8, chloride 107, bicarbonate 25, BUN 9, creatinine 0.59. Troponin 0.11 followed by 0.13. TSH is 0.35. 12-lead EKG reviewed 07/24/17 at 6:01 which shows sinus rhythm at 60 beats per minute with prolonged QT interval at 501 milliseconds, suspect [place] segment depression versus some mild ST elevation diffusely. Repeat EKG completed at 10: 41 today shows [place] segment elevation in aVR versus again ST elevation diffusely and appears a bit more prominent than prior. EKG 03/02/16 shows sinus tachycardia at 116 beats per minute and at that time there does not appear to be [place] segment depression diffusely or ST-T wave changes. IMPRESSION: Ms. Lamar is a 42-year-old woman with history of severe asthma with exacerbation, admitted with respiratory failure. On exam, she appears to have myopericarditis based on her pericardial friction rub and EKG changes with minor troponin elevation. PLAN/RECOMMENDATIONS: 1. The patient is already on steroids for her asthma, so I do not feel additional NSAID therapy is required as an anti-inflammatory. 2. At this point, it does not appear that the patient has acute coronary syndrome. 3. Await echocardiogram. 4. Continue to cycle troponins given mild troponinemia; question stress- release related component in addition to myopericarditis. 5. Other management as per the critical care medicine service and I have discussed the case with Dr. Villegas. Many thanks for this kind cardiac consultation opportunity. Please do not hesitate to contact me if you have any questions or concerns regarding the patient's cardiovascular consultative care. [id number]/[facility] #: [id number] APRIL
[2017-07-25] MEDS: Insulin LISPRO* 1 UNITS UNIT SUBCUT SCH ×7 (00:05→23:38)
[2017-07-25] MEDS: Dexmedetomidine* 400 MCG in NS 0.9% 100 ML* 96 ML IVPB SCH ×4 (00:06→21:02)
[2017-07-25] MEDS: Chlorhexidine MOUTHWASH 0.12%* 15 ML UDC TOPICAL SCH ×7 (00:06→23:27)
[2017-07-25] MEDS: Propofol* 100 ML IV SCH ×11 (00:49→22:29)
[2017-07-25] MEDS: Albuterol 2.5 MG/3 ML NEB.SOL* (0.083%) INH SCH ×6 (04:12→23:41)
[2017-07-25] MEDS: methylPREDNISolone SOD 40 MG* 1 ML VIAL IV SCH ×3 (04:23→21:04)
[2017-07-25 05:20] LABS: Hematocrit 35 % (35-47); Hemoglobin 11.2 g/dl (12.0-16.0); Mean Corpuscular HGB Conc 32 g/dl (31-36); Mean Corpuscular Hemoglobin 25 pg (27-31); Mean Corpuscular Volume 79 fL (80-97); Mean Platelet Volume 9.4 um3 (7.4-10.4); Platelet Count 324 10^3/ul (150-450); Red Blood Count 4.45 10^6/ul (4.0-5.4); Red Cell Distribution Width 16 % (10.5-15); White Blood Count 15.2 10^3/ul (3.5-10.8)
[2017-07-25] MEDS: Midazolam* 1 MG/ML 2 ML VIAL (2 MG) IV PRN ×4 (07:31→22:09)
[2017-07-25] MEDS: Aspirin 81 mg CHEW TAB* 81 MG TAB.CHEW PO SCH (09:23)
[2017-07-25] MEDS ORDERED: Theophylline TAB* 300 MG PO SCH (10:00)
--- NOTE | 2017-07-25 10:04 | PN ---
Progress Note - Progress Note Date of Service: 07/25/17 Note: Progress Note - Critical Care 24 hour events: -remains intubated, on propofol and precedex, off precedex now -wakes easily, restless -CTA chest 07/24 with no PE, small left pulm nodule noted only -no fevers overnight Tele: NSR Vitals: Vital Signs Temp 98.2 F 07/25/17 09:00 Pulse 64 07/25/17 09:00 Resp 16 07/25/17 09:00 BP 143/75 07/25/17 09:00 Pulse Ox 100 07/25/17 09:00 Intake & Output 07/24/17 07/25/17 07/25/17 18:59 06:59 18:59 Intake Total 988 1424 0 Output Total 1040 755 135 Balance -52 669 -135 Weight 244 lb 4.355 oz Intake: IV Fluids 548 769 NS (0.9%) 548 769 Medicated IV 440 655 CC - Dexmedetomidine/ 129 49 Precedex CC - Propofol/Diprivan 311 606 Oral 0 Output: NG Tube Drainage Amount 0 Chan 1040 755 135 O2/Vent: AC 50%, rr 16, tv 400 Infusions: NS, propofol Current Medications: Albuterol (Ventolin 2.5 Mg/3 Ml Neb.Tiffanie*) 2.5 mg INH Q4H [facility] Last Admin: 07/25/17 07:28 Dose: 2.5 mg Aripiprazole (Abilify Tab*) 5 mg PO DAILY [facility] Aspirin (Aspirin 81 Mg Chew Tab*) 81 mg PO DAILY [facility] Last Admin: 07/25/17 09:23 Dose: 81 mg Chlorhexidine Gluconate (Peridex Mouth Wash 0.12%*) 15 ml TOPICAL Q4H [facility] Last Admin: 07/25/17 09:23 Dose: 15 ml Dextrose (D50w Syringe 50 Ml*) 12.5 gm IV PUSH .FOR FS < 60 - SS PRN PRN Reason: FS < 60 Propofol (Diprivan*) 100 mls @ 28.8 mls/hr IV .(Initial Rate) BRUCE; 40 MCG/KG/ MIN PRN Reason: Protocol Last Admin: 07/25/17 09:23 Dose: 53.8 mls/hr Sodium Chloride (Ns 0.9% 1000 Ml*) 1,000 mls @ 50 mls/hr IV PER RATE [facility] Last Admin: 07/24/17 18:11 Dose: 50 mls/hr Dexmedetomidine HCl 400 mcg/ (Sodium Chloride) 100 mls @ 14.08 mls/hr IVPB Q7H [facility]; 0.5 MCG/KG/HR PRN Reason: Protocol Last Admin: 07/25/17 08:29 Dose: 14.08 mls/hr Insulin Human Lispro (Humalog*) 0 units SUBCUT FS Q4 ICU [facility] PRN Reason: Protocol Last Admin: 07/25/17 08:09 Dose: Not Given Methylprednisolone Sodium Succinate (Solu-Medrol 40 Mg) 60 mg IV Q8H [facility] Last Admin: 07/25/17 04:23 Dose: 60 mg Midazolam HCl (Versed 2mg/2ml*) 2 mg IV Q2H PRN PRN Reason: resp distress Stop: 07/26/17 19:58 Last Admin: 07/25/17 07:31 Dose: 2 mg Montelukast Sodium (Singulair Tab*) 10 mg PO DAILY [facility] Pantoprazole Sodium (Protonix Iv*) 40 mg IV BEDTIME [facility] Last Admin: 07/24/17 20:30 Dose: 40 mg Fluticasone/Salmeterol (Advair Diskus 500-50*) 1 puff INH BID [facility] Sertraline HCl (Zoloft*) 100 mg PO DAILY [facility] Theophylline (Kumar Dur*) 300 mg PO BID [facility] Tiotropium [place] (Spiriva Cap.Inh*) cap INH DAILY [facility] Physical Exam: General: intubated, sedated, obese Head: normocephalic, atraumatic HEENT: no pallor, no icterus, moist mucous membranes Neck: soft, supple, no jvd CVS: normal rate, regular, no murmur Resp: bilateral air entry, no rhales/rhonchi/wheezing, no acc muscle use Abdomen: soft, nontender, nondistended, bowel sounds present Ext: pulses+, warm, no edema Skin: intact, no breakdown, no dryness Neuro: intubated, sedated, pupils reactive; on lower sedation wakes and follows commands Labs: Laboratory Results - last 24 hr 07/24/17 07/24/17 07/24/17 05:53 12:13 16:46 WBC RBC Hgb Hct MCV MCH MCHC RDW Plt Count MPV Patient Temperature ABG pH ABG pH (Temp Correct) ABG pCO2 ABG pCO2 (Temp Corrct ABG pO2 ABG pO2 (Temp Correct ABG HCO3 ABG O2 Saturation ABG Base Excess Respiration Rate O2 Delivery Device Ventilator Type Vent Mode FiO2 Inspiratory Time PEEP Pressure Support Pressure Control EPAP IPAP BiPAP Sodium Potassium Chloride Carbon Dioxide Anion Gap BUN Creatinine Est GFR ( Amer) Est GFR (Non-Af Amer) BUN/Creatinine Ratio Glucose POC Glucose (mg/dL) 157 H Hemoglobin A1c 5.6 Calcium Troponin I 0.09 H* 07/24/17 07/24/17 07/24/17 17:02 20:05 23:48 WBC RBC Hgb Hct MCV MCH MCHC RDW Plt Count MPV Patient Temperature ABG pH ABG pH (Temp Correct) ABG pCO2 ABG pCO2 (Temp Corrct ABG pO2 ABG pO2 (Temp Correct ABG HCO3 ABG O2 Saturation ABG Base Excess Respiration Rate O2 Delivery Device Ventilator Type Vent Mode FiO2 Inspiratory Time PEEP Pressure Support Pressure Control EPAP IPAP BiPAP Sodium Potassium Chloride Carbon Dioxide Anion Gap BUN Creatinine Est GFR ( Amer) Est GFR (Non-Af Amer) BUN/Creatinine Ratio Glucose POC Glucose (mg/dL) 161 H 143 H 140 H Hemoglobin A1c Calcium Troponin I 07/25/17 07/25/17 07/25/17 03:53 05:03 05:03 WBC 15.2 H RBC 4.45 Hgb 11.2 L Hct 35 MCV 79 L MCH 25 L MCHC 32 RDW 16 H Plt Count 324 MPV 9.4 Patient Temperature ABG pH ABG pH (Temp Correct) ABG pCO2 ABG pCO2 (Temp Corrct ABG pO2 ABG pO2 (Temp Correct ABG HCO3 ABG O2 Saturation ABG Base Excess Respiration Rate O2 Delivery Device Ventilator Type Vent Mode FiO2 Inspiratory Time PEEP Pressure Support Pressure Control EPAP IPAP BiPAP Sodium 140 Potassium 4.0 Chloride 110 Carbon Dioxide 27 Anion Gap 3 BUN 10 Creatinine 0.51 Est GFR ( Amer) 168.5 Est GFR (Non-Af Amer) 131.0 BUN/Creatinine Ratio 19.6 Glucose 137 H POC Glucose (mg/dL) 149 H Hemoglobin A1c Calcium 8.3 L Troponin I 07/25/17 07/25/17 07:48 09:45 WBC RBC Hgb Hct MCV MCH MCHC RDW Plt Count MPV Patient Temperature Not Reportable ABG pH 7.33 L ABG pH (Temp Correct) Not Reportable ABG pCO2 50 H ABG pCO2 (Temp Corrct Not Reportable ABG pO2 136 H ABG pO2 (Temp Correct Not Reportable ABG HCO3 24.9 ABG O2 Saturation 99.6 H ABG Base Excess -0.1 Respiration Rate Not Reportable O2 Delivery Device vent Ventilator Type Not Reportable Vent Mode Not Reportable FiO2 40 Inspiratory Time Not Reportable PEEP 5 Pressure Support Not Reportable Pressure Control Not Reportable EPAP Not Reportable IPAP Not Reportable BiPAP Not Reportable Sodium Potassium Chloride Carbon Dioxide Anion Gap BUN Creatinine Est GFR ( Amer) Est GFR (Non-Af Amer) BUN/Creatinine Ratio Glucose POC Glucose (mg/dL) 111 H Hemoglobin A1c Calcium Troponin I Imaging: cxr 07/23 ett above jonathan, no infiltrates/effusions/ptx Assessment: 42y F pmhx of Severe persistent asthma, obesity, YOLANDA on CPAP, s/p Lap-banding; brought in by family due to severe respiratory distress. Sons found her at home in distress, placed her in car and brought her to ER. Before leaving they gave her a shot of SC epinephrine. They are unsure if she had any fever/chills/n/v or recent illness. They are unclear of cough/sob. When reaching ER, she was taken out of care and was unresponsive, possibly cyanotic. Brought into ER and a cardiac arrest code was called, Sons did do some CPR prior to arrival possibly but no CPR needed in ER, so true cardiac arrest unclear. In ER, she had a pulse, bagged, sats in 90s, but poor mental status. Given sedation/induction and intubated by ER physician with glidescope. I attended in the ER, she had diffuse bilateral poor air entry but diffuse long expiratory wheezing+. -Acute hypercapneic respiratory failure -likely acute hypoxic respiratory failure in field -Asthma Exaccerbation -Lactic acidosis from respiratory failure -Leukocytosis Obesity YOLANDA Plan: Neuro- maintain sedation with propofol, off precedex, or low dose at times, raas -1 to -2. FOllows commands on lower sedation. CVS- BP stable. HR stable, no arrythmia noted, NSR. Cardiology thinks likely pericarditis, cont current management, possible viral etiology? IVF NS 50cc/ hour. GOod urine output. Troponin downtrended. ASA 81 daily. No abx, wbc 15, afebrile, nontoxic. Resp- Intubated, 50% fio2. no distress. no secretions. wheezing resolved. CXR clear of infiltrate. Cont solumedrol 60mg iv q8h. Bronchodilators q4h RTC. INfluenza neg. Possible viral process before? ABG with some hypercapnea despite good flows on vent and no wheezing, may need to delay extubation. will try weaning on less sedation to assess CPAP trial ID- afebrile. Wbc 15. Reactive process? CXR clear. Urinarlysis negative. Holding Abx. On steroids now which will elevated wbc. Cultures in process, influenza neg. GI- NPO; if not extubated, will start feeds today. GI prophlaxis while on steroids. Renal- Cr okay. K okay. Metabolic acidosis resolved. Improving otherwise. Cont NS 50cc/hour. Heme- hg okay, baseline anemia fluctuates, hg 11-12 range earlier too, will monitor. plt okay. Endo- hyperglycemia with glycosuria+, on steroids now. hba1c 5.6. insulin sliding scale. Musculsk- pressure ulcer proph. Wounds- none Nutrition- NPO, likely feeds today DVT prophylaxis: SCDs GI prophylaxis: PPI Central Line: no Arterial Line: no Chan Cathetor: yes 07/23 Disposition: ICU for respiratory failure discussed with son at bedside the plan for today Code Status: full code Total Critical Care time is 35 minutes, excluding procedures/teaching Juliocesar Villegas MD Heavy Repairer (Electronically Signed)
[2017-07-25] MEDS ORDERED: Perflutren Lipid Microsphere* 3 ML VIAL ONE (10:20)
[2017-07-25] MEDS ORDERED: Spiriva Inhaler DEVICE* 1 EACH DEVICE INH ONE (10:30)
[2017-07-25] MEDS ORDERED: ALPRAZolam TAB* 0.25 MG PO ONE (11:04)
[2017-07-25] MEDS ORDERED: ALPRAZolam TAB* 0.25 MG ONE (11:08)
--- NOTE | 2017-07-25 11:23 | ECHO ---
Patient: KIRSTEN ROCHA [facility] Rec#: [id number] : 1975 Date: 07/25/2017 Age: 42y Height: 162.56 cm / 64.0 in Weight: 115.67 kg / 254.9 lbs Sex: F BSA: 2.17 Room#: ICU9 Admit Date#: 07/24/2017 Type: Inpatient Referring: Juliocesar Villegas Reading: Kristofer Bains MD Hotel Attendant: April Gutierrez RDCS CC: Jose Torres MD Transthoracic Echocardiogram Indication: Respiratory Abn// Asthma Exacerbation BP: 118/68 HR: 71 Rhythm: NSR Findings History: Sedated, intubated and mechanically ventilated secondary to asthma exacerbation. PMHx: obesity,asthma ,YOLANDA with CPAP rx. Technical Comments: The study is technically limited due to patient body habitus. Definity used to enhance images. The study is technically limited due to patient being intubated and on a ventilator. Completed at 1058. Left Ventricle: The left ventricular chamber size is normal. Global left ventricular wall motion and contractility are within normal limits. There is normal left ventricular systolic function. The estimated ejection fraction is 60-65%. The assessment of diastolic function is non-diagnostic. Left Atrium: The left atrial chamber size is normal. Right Ventricle: The right ventricular cavity size is normal. The right ventricular global systolic function is normal. Right Atrium: The right atrium is mildly dilated. Aortic Valve: The aortic valve is trileaflet. There is no evidence of aortic valve thickening. There is no evidence of aortic regurgitation. There is no evidence of aortic stenosis. Mitral Valve: The mitral valve leaflets are mildly thickened. There is a trace of mitral regurgitation. Tricuspid Valve: The tricuspid valve leaflets are normal. There is trace to mild tricuspid regurgitation. There is evidence of mild to moderate pulmonary hypertension. Pulmonic Valve: The pulmonic valve structure is not well visualized. There is no evidence of pulmonic regurgitation. There is no pulmonic stenosis. Pericardium: There is no significant pericardial effusion. A pericardial fat pad is visualized. Aorta: There is no dilatation of the ascending aorta. There is no dilatation of the aortic arch. There is no dilation of the aortic root. Pulmonary Artery: The main pulmonary artery is not well visualized. Venous: Unable to accurately comment on the size collapsibility of the IVC as the patient in known to be on mechanical ventilation. Contrast: Definity was used to optimize study. A total of 3 ml used. Intravenous contrast was used to enhance endocardial border definition. Conclusions There is normal left ventricular systolic function. The estimated ejection fraction is 60-65%. Global left ventricular wall motion and contractility are within normal limits. The left ventricular chamber size is normal. The right atrium is mildly dilated. Functionally benign heart valves. There is evidence of mild to moderate pulmonary hypertension. There is no prior echocardiogram available to compare with at this time. Measurements Name Value Normal Range RVIDd (AP) 2D 2.8 cm (0.9 - 2.6) RVDdMajor (2D) 4 cm (2.2 - 4.4) RAd ISD 4CH 5.1 cm (3.4 - 4.9) RA (A4C)W 4 cm (2.9 - 4.6) IVSd (2D) 1.1 cm (0.6 - 1) LVPWd (2D) 1 cm (0.6 - 1) LVIDd (2D) 4.5 cm (3.6 - 5.4) LVIDs (2D) 2.8 cm - LV FS (2D) 38 % (25 - 45) Aortic Annulus 2 cm (1.4 - 2.6) Ao root diameter (2D) 3.3 cm (2.1 - 3.5) Ascending Ao 2.9 cm (2.1 - 3.4) Aortic arch 1.9 cm (1.8 - 3.4) Descending Ao 0.9 cm - LA dimension (AP) 2D 3.2 cm (2.3 - 3.8) LAd ISD 4CH 4.6 cm (2.9 - 5.3) LA ISD 4CH W 4.1 cm (2.5 - 4.5) Name Value Normal Range LA ESV SP 4CH (A/L) 40 ml - LA ESV SP 2CH (A/L) 40 ml - LA ESV BP (A/L) 41 ml - LA ESV BP (A/L) index 18.96 ml/m2 - LA ESV SP 4CH (MOD) 36 ml - LA ESV SP 2CH (MOD) 35 ml - Name Value Normal Range MV E-wave Vmax 0.9 m/sec - MV deceleration time 258 msec - MV A-wave Vmax 0.8 m/sec - MV E:A ratio 1.1 ratio - LV septal e' Vmax 0.07 m/sec - LV lateral e' Vmax 0.1 m/sec - LV E:e' septal ratio 12.85 ratio - LV E:e' lateral ratio 9 ratio - Name Value Normal Range AV Vmax 1.4 m/sec - AV VTI 28.5 cm - AV peak gradient 7.97 mmHg - AV mean gradient 3.9 mmHg - LVOT Vmax 1.04 m/sec - LVOT VTI 23.6 cm - LVOT peak gradient 4.35 mmHg - LVOT mean gradient 1.82 mmHg - Name Value Normal Range TR Vmax 3 m/sec - TR peak gradient 36 mmHg - RVSP 44 mmHg - IVC diameter 3 cm - Name Value Normal Range PV Vmax 1 m/sec - PV peak gradient 3.63 mmHg -
[2017-07-25] MEDS: THEOPHYLLINE 80 MG/15 ML PO SCH ×2 (11:38→23:26)
[2017-07-25] MEDS: fentaNYL* 50 MCG/ML 2 ML VIAL (100 MCG VIAL) IV SLOW PU PRN ×2 (12:59→18:21)
[2017-07-25] MEDS ORDERED: HYDROmorphone INJ* 2 MG/ML CARPUJECT SYRINGE IV ONE (13:45)
[2017-07-25] MEDS ORDERED: HYDROmorphone INJ* 2 MG/ML CARPUJECT SYRINGE ONE (13:52)
[2017-07-25] MEDS: NS 0.9% 1000 ML* 1,000 ML IV SCH (14:15)
[2017-07-25] MEDS: Tiotropium CAP.INH* CAP.INH/18 MCG (USE ORDER SET !) INH SCH (15:26)
[2017-07-25] MEDS ORDERED: HYDROmorphone INJ* 2 MG/ML CARPUJECT SYRINGE IV SLOW PU PRN (16:53)
[2017-07-25] MEDS: HYDROmorphone INJ* 2 MG/ML CARPUJECT SYRINGE IV SLOW PU PRN ×2 (19:20→23:27)
[2017-07-25] MEDS: Mometasone/Formoter 200/5 MDI INH SCH (19:26)
[2017-07-25] MEDS: Pantoprazole IV* 40 MG IV SCH (21:04)
[2017-07-26] MEDS: Propofol* 100 ML IV SCH ×6 (00:18→10:38)
[2017-07-26] MEDS: Midazolam* 1 MG/ML 2 ML VIAL (2 MG) IV PRN ×3 (01:33→09:32)
[2017-07-26] MEDS: Chlorhexidine MOUTHWASH 0.12%* 15 ML UDC TOPICAL SCH ×4 (03:35→14:08)
[2017-07-26] MEDS: Insulin LISPRO* 1 UNITS UNIT SUBCUT SCH ×3 (03:40→12:55)
[2017-07-26] MEDS: NS 0.9% 1000 ML* 1,000 ML IV SCH (03:41)
[2017-07-26] MEDS: HYDROmorphone INJ* 2 MG/ML CARPUJECT SYRINGE IV SLOW PU PRN ×2 (03:49→10:30)
[2017-07-26] MEDS: Dexmedetomidine* 400 MCG in NS 0.9% 100 ML* 96 ML IVPB SCH ×2 (03:57→12:26)
[2017-07-26] MEDS: methylPREDNISolone SOD 40 MG* 1 ML VIAL IV SCH ×5 (05:14→22:17)
[2017-07-26] MEDS: Albuterol 2.5 MG/3 ML NEB.SOL* (0.083%) INH SCH ×5 (05:28→19:42)
[2017-07-26 05:41] LABS: Hematocrit 33 % (35-47); Hemoglobin 10.4 g/dl (12.0-16.0); Mean Corpuscular HGB Conc 32 g/dl (31-36); Mean Corpuscular Hemoglobin 25 pg (27-31); Mean Corpuscular Volume 79 fL (80-97); Mean Platelet Volume 9.4 um3 (7.4-10.4); Platelet Count 345 10^3/ul (150-450); Red Blood Count 4.16 10^6/ul (4.0-5.4); Red Cell Distribution Width 15 % (10.5-15)
[2017-07-26 05:56] LABS: EGFR Non-African American 125.3 (>60)
[2017-07-26] MEDS: Tiotropium CAP.INH* CAP.INH/18 MCG (USE ORDER SET !) INH SCH (08:45)
[2017-07-26] MEDS: Mometasone/Formoter 200/5 MDI INH SCH ×2 (08:45→19:42)
[2017-07-26] MEDS: ALPRAZolam TAB* 0.25 MG PO SCH (08:54)
[2017-07-26] MEDS: Sertraline* 100 MG TAB PO SCH (08:54)
[2017-07-26] MEDS: ARIPiprazole TAB* 5 MG PO SCH (08:54)
[2017-07-26] MEDS: Aspirin 81 mg CHEW TAB* 81 MG TAB.CHEW PO SCH (08:55)
[2017-07-26] MEDS: Montelukast Sodium TAB* 10 MG PO SCH (09:35)
[2017-07-26] MEDS ORDERED: EPINEPHrine,Rac 2.25% NEB.SOL* 0.5 ML ONE (11:05)
[2017-07-26] MEDS ORDERED: EPINEPHrine,Rac 2.25% NEB.SOL* 0.5 ML INH PRN (11:13)
[2017-07-26] MEDS ORDERED: HYDROmorphone INJ* 2 MG/ML CARPUJECT SYRINGE ONE (11:33)
[2017-07-26] MEDS: THEOPHYLLINE 80 MG/15 ML PO SCH ×2 (12:26→22:14)
--- NOTE | 2017-07-26 15:29 | PN ---
Date of Service: 07/26/17 Critical Care Services: Patient was weaned and extubated this AM - Because of a positive cuff-leak test , she was given pre-extubation steroids to decrease the risk of post-extubation stridor.After extubation, patient did have inspiratory stridor, but was breathing comfortably. Vital Signs: Temp Pulse Resp BP SpO2 FiO2 99.1 F 80 19 158/108 96 60 Physical Exam: Gen:Alert, oriented HEENT:OP clear. No JVD Lungs: Exp wheezes both lungs, but moving air OK. Cardiac: Reg rhythm Extremities:No cyanosis or edema Fluid Balance (Past 24 Hours): 07/26/17 06:59 Intake Total 2337 Output Total 1405 Balance 932 Weight 253 lb Intake: IV Fluids 1165 NS (0.9%) 1165 Medicated IV 1172 CC - Dexmedetomidine/ Precedex CC - Propofol/Diprivan 1172 Oral 0 Output: NG Tube Drainage Amount 0 Chan 1405 Labs: 07/26/17 07/26/17 07/26/17 03:38 05:26 05:26 WBC 13.0 H RBC 4.16 Hgb 10.4 L Hct 33 L MCV 79 L MCH 25 L MCHC 32 RDW 15 Plt Count 345 MPV 9.4 Sodium 142 Potassium 3.9 Chloride 108 Carbon Dioxide 30 Anion Gap 4 BUN 12 Creatinine 0.53 Glucose 111 H POC Glucose (mg/dL) 137 H Calcium 7.9 L Studies: None today Nutrition: Oral diet (start today) Impression: 1. Asthma improving. 2. Has evidence of laryngeal edema but is tolerating extubation. 3. BP is up - there is no evidence of CHF, and no history of hypertension. Plan: Continue bronchchodilators and steroids. Start antihypertensive Rx (at least temporarily) Critical Care Time: 40 minutes (including time to evaluate both pre- and post- extubation)
[2017-07-26] MEDS: fentaNYL* 50 MCG/ML 2 ML VIAL (100 MCG VIAL) IV SLOW PU PRN (15:37)
[2017-07-26] MEDS: Enalaprilat IV* 1.25 MG/ML 1 ML VIAL (1.25 MG) IV SCH ×2 (15:38→22:20)
[2017-07-26] MEDS ORDERED: Enalaprilat IV* 1.25 MG/ML 1 ML VIAL (1.25 MG) IV ONE (20:00)
[2017-07-27] MEDS: fentaNYL* 50 MCG/ML 2 ML VIAL (100 MCG VIAL) IV SLOW PU PRN (00:46)
[2017-07-27] MEDS: Albuterol 2.5 MG/3 ML NEB.SOL* (0.083%) INH SCH ×7 (01:08→23:39)
[2017-07-27] MEDS: NS 0.9% 1000 ML* 1,000 ML IV SCH (02:30)
[2017-07-27] MEDS: methylPREDNISolone SOD 40 MG* 1 ML VIAL IV SCH ×3 (02:51→08:44)
[2017-07-27] MEDS: Enalaprilat IV* 1.25 MG/ML 1 ML VIAL (1.25 MG) IV SCH ×2 (03:46→08:43)
[2017-07-27 06:34] LABS: EGFR Non-African American 140.5 (>60)
[2017-07-27 06:35] LABS: Hematocrit 34 % (35-47); Hemoglobin 10.8 g/dl (12.0-16.0); Mean Corpuscular HGB Conc 32 g/dl (31-36); Mean Corpuscular Hemoglobin 25 pg (27-31); Mean Corpuscular Volume 79 fL (80-97); Mean Platelet Volume 9.5 um3 (7.4-10.4); Platelet Count 331 10^3/ul (150-450); Red Blood Count 4.33 10^6/ul (4.0-5.4); Red Cell Distribution Width 16 % (10.5-15); White Blood Count 12.1 10^3/ul (3.5-10.8)
[2017-07-27] MEDS: Famotidine TAB* 20 MG PO SCH (08:43)
[2017-07-27] MEDS: Montelukast Sodium TAB* 10 MG PO SCH (08:43)
[2017-07-27] MEDS: ARIPiprazole TAB* 5 MG PO SCH (08:43)
[2017-07-27] MEDS: Aspirin 81 mg CHEW TAB* 81 MG TAB.CHEW PO SCH (08:43)
[2017-07-27] MEDS: Sertraline* 100 MG TAB PO SCH (08:43)
[2017-07-27] MEDS: ALPRAZolam TAB* 0.25 MG PO SCH (08:43)
[2017-07-27] MEDS: Tiotropium CAP.INH* CAP.INH/18 MCG (USE ORDER SET !) INH SCH (08:49)
[2017-07-27] MEDS: Mometasone/Formoter 200/5 MDI INH SCH ×2 (08:50→20:08)
[2017-07-27] MEDS ORDERED: cloNIDine TAB* 0.1 MG PO ONE (09:19)
[2017-07-27] MEDS ORDERED: hydrALAZINE IV* 20 MG/ML VIAL IV SLOW PU PRN (09:20)
[2017-07-27] MEDS: THEOPHYLLINE 80 MG/15 ML PO SCH ×2 (09:44→22:13)
[2017-07-27] MEDS: amLODIPine TAB* 5 MG PO SCH (11:03)
--- NOTE | 2017-07-27 14:48 | PN ---
Date of Service: 07/27/17 Critical Care Services: Respiratory status much better this AM (is up in bed and breathing comfortably) . major problem today is hypertension (BPs runing about 200/120), which is apparwently new-onset. No associated chest pains or evidence of CHF Vital Signs: Temp Pulse Resp BP SpO2 FiO2 99.4 F 87 15 128/87 95 60 Physical Exam: Gen:Breathing comfortably HEENT:No JVD Lungs:End-expiratory wheezes. No crackles Cardiac: Reg rhythm. No murmurs or rubs. Extremities:No cyanosis or edema. Fluid Balance (Past 24 Hours): 07/27/17 06:59 Intake Total 1516 Output Total 2414 Balance -898 Weight 241 lb Intake: IV Fluids 1227 NS (0.9%) 1227 Medicated IV 289 CC - Dexmedetomidine/ Precedex CC - Propofol/Diprivan 289 Oral Output: NG Tube Drainage Amount Urine Chan 2414 Other: Estimated Void # Voids Labs: 07/27/17 07/27/17 06:00 06:00 WBC 12.1 RBC 4.33 Hgb 10.8 Hct 34 L MCV 79 L MCH 25 L MCHC 32 RDW 16 H Plt Count 331 MPV 9.5 Sodium 141 Potassium 3.5 Chloride 104 Carbon Dioxide 29 Anion Gap 8 BUN 9 Creatinine 0.48 Glucose 148 Calcium 8.5 Studies: None today Nutrition: Oral diet - intake is good. Impression: 1. Acute exacerbation of asthma - resolving. 2. Apparent new-onset hypertension. Plan: 1. Lower BP with clonidine (x 1 dose) and start amlodipine (10 mg daily) - and use IV hydralazine for PRN BP control. 2. Continue respiratory regimen, and switch steroid regimen to PO prednisone ( 40 mg daily) 3. Can transfer out of ICU
[2017-07-28] MEDS: Albuterol 2.5 MG/3 ML NEB.SOL* (0.083%) INH SCH ×5 (03:05→20:15)
[2017-07-28 05:56] LABS: Hematocrit 32 % (35-47); Hemoglobin 10.4 g/dl (12.0-16.0); Mean Corpuscular HGB Conc 33 g/dl (31-36); Mean Corpuscular Hemoglobin 26 pg (27-31); Mean Corpuscular Volume 78 fL (80-97); Mean Platelet Volume 9.1 um3 (7.4-10.4); Platelet Count 299 10^3/ul (150-450); Red Blood Count 4.06 10^6/ul (4.0-5.4); Red Cell Distribution Width 15 % (10.5-15); White Blood Count 12.5 10^3/ul (3.5-10.8)
[2017-07-28 06:10] LABS: EGFR Non-African American 122.6 (>60)
[2017-07-28] MEDS: Mometasone/Formoter 200/5 MDI INH SCH ×2 (07:44→20:16)
[2017-07-28] MEDS: Tiotropium CAP.INH* CAP.INH/18 MCG (USE ORDER SET !) INH SCH (08:13)
[2017-07-28] MEDS: ARIPiprazole TAB* 5 MG PO SCH (10:25)
[2017-07-28] MEDS: ALPRAZolam TAB* 0.25 MG PO SCH (10:25)
[2017-07-28] MEDS: Sertraline* 100 MG TAB PO SCH (10:25)
[2017-07-28] MEDS: Montelukast Sodium TAB* 10 MG PO SCH (10:25)
[2017-07-28] MEDS: Aspirin 81 mg CHEW TAB* 81 MG TAB.CHEW PO SCH (10:26)
[2017-07-28] MEDS: amLODIPine TAB* 5 MG PO SCH (10:26)
[2017-07-28] MEDS: Famotidine TAB* 20 MG PO SCH (10:26)
[2017-07-28] MEDS: predniSONE TAB* 20 MG PO SCH (10:26)
[2017-07-28] MEDS: THEOPHYLLINE 80 MG/15 ML PO SCH ×2 (12:10→22:09)
--- NOTE | 2017-07-28 15:02 | PN ---
Subjective Date of Service: 07/28/17 Interval History: HOSPITALIST PROGRESS NOTE Patient seen and examined at bedside. Care reviewed and d/w Mariia Khalil RN. She feels better today. Breathing is close to baseline. States the episodes of asthma exacerbation she needed intubation in the past were all very sudden, similar to this one. Family History: Unchanged from Admission Social History: Unchanged from Admission Past Medical History: Unchanged from Admission Objective Active Medications: Albuterol (Ventolin 2.5 Mg/3 Ml Neb.Tiffanie*) 2.5 mg INH [id number] AWAKE [facility] Last Admin: 07/28/17 14:50 Dose: 2.5 mg Alprazolam (Xanax Tab*) 0.25 mg PO DAILY [facility] Last Admin: 07/28/17 10:25 Dose: 0.25 mg Amlodipine Besylate (Norvasc Tab*) 10 mg PO DAILY [facility] Last Admin: 07/28/17 10:26 Dose: 10 mg Aripiprazole (Abilify Tab*) 5 mg PO DAILY [facility] Last Admin: 07/28/17 10:25 Dose: 5 mg Aspirin (Aspirin 81 Mg Chew Tab*) 81 mg PO DAILY [facility] Last Admin: 07/28/17 10:26 Dose: 81 mg Famotidine (Pepcid Tab*) 20 mg PO DAILY [facility] Last Admin: 07/28/17 10:26 Dose: 20 mg Hydralazine HCl (Apresoline Iv*) 10 mg IV SLOW PU Q6H PRN PRN Reason: BLOOD PRESSURE Hydromorphone HCl (Dilaudid Inj*) 0.5 mg IV SLOW PU Q4H PRN PRN Reason: PAIN - MILD TO MODERATE Last Admin: 07/25/17 17:23 Dose: 0.5 mg Mometasone Furoate/Formoterol Fumar (Dulera 200/5 Mdi*) 2 puff INH BID [facility] Last Admin: 07/28/17 07:44 Dose: 2 puff Montelukast Sodium (Singulair Tab*) 10 mg PO DAILY [facility] Last Admin: 07/28/17 10:25 Dose: 10 mg Prednisone (Deltasone Tab*) 40 mg PO DAILY [facility] Last Admin: 07/28/17 10:26 Dose: 40 mg Sertraline HCl (Zoloft*) 100 mg PO DAILY [facility] Last Admin: 07/28/17 10:25 Dose: 100 mg Theophylline (Elixophyllin*) 300 mg PO Q12H [facility] Last Admin: 07/28/17 12:10 Dose: 300 mg Tiotropium [place] (Spiriva Cap.Inh*) 1 cap INH DAILY [facility] Last Admin: 07/28/17 08:13 Dose: 1 cap Vital Signs - 8 hr 07/28/17 07/28/17 07/28/17 07:32 07:45 10:25 Temperature 97.6 F Pulse Rate 56 75 Respiratory 16 18 16 Rate Blood Pressure 101/50 (mmHg) O2 Sat by Pulse 100 99 Oximetry Oxygen Devices in Use Now: Nasal Cannula - 3 liters Appearance: Pleasant obese lady sitting up in bed in NAD. Eyes: No Scleral Icterus Ears/Nose/Mouth/Throat: Mucous Membranes Moist Neck: Trachea Midline Respiratory: Symmetrical Chest Expansion and Respiratory Effort, - - BS+ bilaterally diminished, but no added sounds Cardiovascular: RRR - Normal S1 and S2 Neurological: Alert and Oriented x 3, NL Muscle Strength and Tone Result Diagrams: 07/28/17 05:43 07/28/17 05:43 Assess/Plan/Problems-Billing Assessment: Mrs. Lamar is a 42yo F with PMH of asthma, obesity, YOLANDA on CPAP, s/p Lap band, who presented to ED in severe respiratory distress secondary to asthma exacerbation requiring intubation. - Patient Problems (1) Acute hypercapnic respiratory failure Comment: - Secondary to asthma exacerbation. - Required intubation, now on 3 liters NC. (2) Asthma exacerbation Comment: - Monitor peak flow pre and post treatment. - Continue bronchodilators, steroids, theophylline, and montelukast. - Pulm consultation requested. (3) HTN (hypertension) Comment: - Better controlled - continue amlodipine. (4) YOLANDA (obstructive sleep apnea) Comment: - Continue CPAP. (5) DVT prophylaxis Comment: - SQ heparin. (6) Full code status Status and Disposition: Inpatient.
[2017-07-28] MEDS: Potassium Chlor TAB* 20 MEQ TAB.ER PO SCH ×2 (15:53→20:08)
[2017-07-28] MEDS: Heparin VIAL(*) 5000 UNITS/ML VIAL (FIVE THOUSAND) SUBCUT SCH (22:09)
[2017-07-29] MEDS: Albuterol 2.5 MG/3 ML NEB.SOL* (0.083%) INH SCH ×4 (00:12→11:21)
--- NOTE | 2017-07-29 01:49 | CONS ---
PULMONARY CONSULTATION REPORT: DATE OF CONSULT: 07/28/17 CONSULTATION REQUESTED BY: Belen Coleman MD REASON FOR CONSULT: Evaluation of asthma. HISTORY OF PRESENT ILLNESS: The patient is a morbidly obese 42-year-old female with history of severe asthma and history of intubation in the past, obesity status post lap banding, YOLANDA on CPAP, who was brought in by family to the emergency room for evaluation of unresponsiveness. Patient was noted to be in sudden distress. As per patient, she did not have any prodromal symptoms. She just felt slightly lightheaded and dizzy after she showered. She was sitting and combing her hair when suddenly she was noted to be unresponsive by her family. Patient had CPR performed by family. In the ER, ABC alert was called, she did not need CPR while in the emergency room, had pulse sats in 90s; however , given poor mental status, she had intubation in the ED. The patient was noted to have diffuse long expiratory wheezing postintubation. Patient was admitted to ICU. Blood gas at that time showed compensated metabolic acidosis with respiratory alkalosis. No evidence of significant hypoxemia was noted. The patient was noted to have significantly elevated blood pressure which responded to medications. She has been having high blood pressure readings recently. She was subsequently extubated and then was transferred to regular floor. Patient was seen and examined at bedside. Patient reports feeling better. She reports mild dizziness while walking; however, denies significant shortness of breath. Patient denies significant cough or sputum production. Patient denies recent fevers, chills, hemoptysis, chest pains, wheezing. Patient claims to be compliant with inhalers as prescribed. She also has been using her CPAP regularly. Patient had CT of the chest to rule out pulmonary embolism. I have personally reviewed the images with the patient today - patient did not have evidence of filling defects. Parenchymal evaluation was limited secondary to motion artifact; however, no suspicious nodules or abnormalities are noted other than subcentimeter pulmonary nodule in the left lower lobe area. Patient is currently on steroids and bronchodilators. PAST MEDICAL HISTORY: 1. Asthma with history of intubations in the past. 2. Obesity, failed bariatric surgery. 3. YOLANDA on CPAP. PAST SURGICAL HISTORY: 1. Unknown lung surgery. 2. Tubal ligation. 3. Gastric lap banding. MEDICATIONS AT HOME: 1. Albuterol. 2. Meclizine. 3. Ferrous sulfate. 4. Montelukast. 5. Theophylline. 6. Spiriva. 7. Famotidine. 8. Abilify. ALLERGIES: ALMOND, SESAME OIL, TREE NUTS. FAMILY HISTORY: Diabetes, hypertension, and cardiac disease. SOCIAL HISTORY: Denies smoking, alcohol or drug abuse. PHYSICAL EXAM: Patient is sitting up in bed, in no apparent distress. Vital Signs: Temperature 97.6, pulse 72 beats per minute, respiratory rate 14 per minute, O2 sat 97% on 2 L. Blood pressure has been elevated except most recent value at 101. HEENT: Pupils are equal, reactive to light. Mucous membranes are moist. Lungs: Scattered wheeze on auscultation. Good air entry bilaterally otherwise. Cardiovascular: S1, S2 present. Regular. Abdomen: Obese, bowel sounds present, nontender, nondistended. Extremities: Normal range of motion, no cyanosis or clubbing. Skin: No rash or bruise. Neuro: No focal deficits. DIAGNOSTIC STUDIES/LAB DATA: WBC count 12.5, hemoglobin 10.4, hematocrit 32, platelet count was 299. Blood gas analysis showed respiratory acidosis upon arrival, repeated blood gas showed significant improvement in acidosis. Sodium 139, potassium 3.2, chloride 102, bicarb 35, BUN 12, creatinine 0.54. Influenza A and B negative. CT as described above in the HPI. IMPRESSION/RECOMMENDATIONS: 42-year-old morbidly obese female, with bariatric surgery in the past, with persistent asthma, history of anaphylaxis secondary to food allergies, admitted with altered mental status, sudden in onset without much prodromal symptoms. Also having elevated blood pressure unclear if patient had hypertensive encephalopathy resulting in altered mental status or hypercapnic respiratory failure resulting from asthma exacerbation. The patient required intubation, extubated and doing well currently. She is on 2L O2 supplementation which would be titrated as tolerated. Pathophysiology of asthma and risk of exacerbations was discussed. The patient has allergies and is getting allergy shots with Dr. Garcia regularly. The patient did not see any prodromal symptoms or history suggestive of anaphylaxis. She does have a history of obstructive sleep apnea and is on CPAP therapy, claims to be compliant with therapy as prescribed. Will repeat blood gas as outpatient to evaluate for chronic hypercapnia as she appears to be having acute on chronic hypercapnic respiratory failure on admission. Continue with current management for her asthma. Thank you for allowing me to participate in the care of your patient. Will follow up with you. [id number]/[facility] #: [id number] APRIL
[2017-07-29] MEDS: Heparin VIAL(*) 5000 UNITS/ML VIAL (FIVE THOUSAND) SUBCUT SCH (05:28)
[2017-07-29 06:57] LABS: EGFR Non-African American 151.4 (>60)
[2017-07-29] MEDS: Tiotropium CAP.INH* CAP.INH/18 MCG (USE ORDER SET !) INH SCH (07:51)
[2017-07-29] MEDS: Mometasone/Formoter 200/5 MDI INH SCH (07:51)
[2017-07-29] MEDS: Aspirin 81 mg CHEW TAB* 81 MG TAB.CHEW PO SCH (10:28)
[2017-07-29] MEDS: Montelukast Sodium TAB* 10 MG PO SCH (10:28)
[2017-07-29] MEDS: Famotidine TAB* 20 MG PO SCH (10:28)
[2017-07-29] MEDS: ALPRAZolam TAB* 0.25 MG PO SCH (10:29)
[2017-07-29] MEDS: Potassium Chlor TAB* 20 MEQ TAB.ER PO SCH (10:29)
[2017-07-29] MEDS: ARIPiprazole TAB* 5 MG PO SCH (10:29)
[2017-07-29] MEDS: amLODIPine TAB* 5 MG PO SCH (10:30)
[2017-07-29] MEDS: Sertraline* 100 MG TAB PO SCH (10:30)
[2017-07-29] MEDS: predniSONE TAB* 20 MG PO SCH (10:30)
[2017-07-29] MEDS: THEOPHYLLINE 80 MG/15 ML PO SCH (10:30)
[2017-07-29 12:26] VITALS: BP 138/75
--- NOTE | 2017-07-30 00:35 | ED ---
Vinh Avila Natalie, scribed for Pardeep Portillo MD on 07/23/17 at 2015 . 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 The pt's son states that his mother was in the bathroom getting ready when she started yelling that she was going to pass out because she couldn 't breathe because didn't get the breathing treatment she needed. The pt's son administered the pt's epi pen, but the pt became less responsive and was not breathing well. The pt's son called 911, but he was put on hold so he drove his mother to the ED, where she became unresponsive. She has hx of chronic asthma. In the ED, CPR was performed immediately, she was sedated and intubated, and Narcan and Fentanyl were administered. The pt's vitals became stabilized. - History of Current Complaint Stated Complaint: ASTHMA Time Seen by Provider: 07/23/17 19:30 Hx Obtained From: Family/Spray Technician Hx From Patient Unobtainable Due To: Other - pt was unresponsive at time of arrival Onset/Duration: Sudden Onset, Still Present Timing: Constant Initial Severity: Severe Current Severity: Severe Pain Scale Used: 0-10 Numeric Location/Character: Other - severe shortness of breath Aggravating Symptoms: Other: - not receiving breathing treatment Alleviating Symptoms: Nothing Associated Signs and Symptoms: Positive: Shortness of Breath - Allergy/Home Medications Allergies/Adverse Reactions: Allergies Allergy/AdvReac Type Severity Reaction Status Date / Time almond Allergy Anaphylatic Verified 07/23/17 20:18 Shock sesame oil Allergy Anaphylatic Verified 07/23/17 20:18 Shock Tree Nuts Allergy Anaphylatic Verified 04/29/17 12:41 Shock nuts Allergy Anaphylatic Uncoded 04/29/17 12:41 Shock PMH/Surg Hx/FS Hx/Imm Hx Endocrine/Hematology History: Denies: Hx Diabetes Cardiovascular History: Denies: Hx Coronary Artery Disease, Hx Hypertension, Hx Pacemaker/ICD Respiratory History: Reports: Hx Asthma, Hx Chronic Obstructive Pulmonary Disease (COPD), Hx Sleep Apnea, Other Respiratory Problems/Disorders - SLEEP APNEA History: Denies: Hx Renal Disease Sensory History: Denies: Hx Hearing Aid Psychiatric History: Reports: Hx Panic Disorder - ANXIETY - Surgical History Surgery Procedure, Year, and Place: Lung surgery, unsure what type. LAB BAND. TUBAL LIGATION. BREAST REDUCTION Hx Anesthesia Reactions: No Infectious Disease History: Denies: Traveled Outside the [place] in Last 30 Days - Family History Known Family History: Positive: Cardiac Disease, Hypertension, Diabetes - Social History Alcohol Use: None Hx Substance Use: No Substance Use Type: Reports: None Hx Tobacco Use: No Smoking Status (MU): Never Smoked Tobacco Review of Systems Positive: Shortness Of Breath, Other - severe respiratory distress Neurological: Other - unresponsive All Other Systems Reviewed And Are Negative: Yes Physical Exam - Summary Physical Exam Summary: Appearance: obtunded, gcs 4 Skin: warm dry Eyes: no extraocular movements, normal light reflexes b/l Head: atraumatic, normocephalic ENT: no acute abnormalities Neck: no masses Respiratory: agonal breaths, intubated immediately on arrival Cardiovascular: pulses palpated after initial round of CPR, normal radial and pedal pulses b/l Abdomen: nontender, no masses Musculoskeletal: no obvious deformities of legs or arms, no voluntary movement on arrival Neurological: gcs 4 on arrival Psychiatric: unable to assess secondary to clinical condition General: Triage Information Reviewed: Yes Vital Signs On Initial Exam: Initial Vitals Pulse Resp BP Pulse Ox 114 22 137/80 97 07/23/17 18:58 07/23/17 18:58 07/23/17 18:58 07/23/17 18:58 Vital Signs Reviewed: Yes Procedures - Intubation Intubation Method: orotracheal Tube Size (cm): 7.5 Breath Sounds after Intubation: equal Intubation Complications: no complications Post Intubation Xray: Yes Diagnostics - Vital Signs Vital Signs Temp Pulse Resp BP Pulse Ox 07/23/17 20:08 102 22 115/79 99 07/23/17 20:04 98 21 98 07/23/17 20:01 93 24 98 07/23/17 20:00 94 24 102/53 98 07/23/17 19:59 36.6 C 92 20 102/53 98 07/23/17 19:43 105 25 138/80 97 07/23/17 19:37 103 21 155/102 99 07/23/17 19:28 107 18 227/142 99 07/23/17 19:17 118 21 99 07/23/17 18:58 114 22 137/80 97 - Laboratory Lab Results: Lab Results 07/23/17 07/23/17 Range/Units 19:15 19:15 WBC 16.4 H (3.5-10.8) 10^3/ul RBC 4.93 (4.0-5.4) 10^6/ul Hgb 12.5 (12.0-16.0) g/dl Hct 41 (35-47) % MCV 83 (80-97) fL MCH 25 L (27-31) pg MCHC 31 (31-36) g/dl RDW 15 (10.5-15) % Plt Count 474 H (150-450) 10^3/ul MPV 9.3 (7.4-10.4) um3 Neut % (Auto) Pending Lymph % (Auto) Pending Dewey % (Auto) Pending Eos % (Auto) Pending Baso % (Auto) Pending Absolute Neuts (auto) Pending Absolute Lymphs (auto) Pending Absolute Monos (auto) Pending Absolute Eos (auto) Pending Absolute Basos (auto) Pending Absolute Nucleated RBC Pending Nucleated RBC % Pending Sodium 137 L (139-145) mmol/L Potassium 3.7 (3.5-5.0) mmol/L Chloride 100 L (101-111) mmol/L Carbon Dioxide 22 (22-32) mmol/L Anion Gap 15 H (2-11) mmol/L BUN 11 (6-24) mg/dL Creatinine 0.93 (0.51-0.95) mg/dL Est GFR ( Amer) 84.2 (>60) Est GFR (Non-Af Amer) 65.5 (>60) BUN/Creatinine Ratio 11.8 (8-20) Glucose 270 H (70-100) mg/dL Calcium 8.9 (8.6-10.3) mg/dL Total Bilirubin 0.20 (0.2-1.0) mg/dL AST 35 (13-39) U/L ALT 35 (7-52) U/L Alkaline Phosphatase 61 (34-104) U/L Troponin I 0.00 (<0.04) ng/mL Total Protein 7.1 (6.4-8.9) g/dL Albumin 4.1 (3.2-5.2) g/dL Globulin 3.0 (2-4) g/dL Albumin/Globulin Ratio 1.4 (1-3) Result Diagrams: 07/28/17 05:43 07/29/17 06:21 Lab Statement: Any lab studies that have been ordered have been reviewed, and results considered in the medical decision making process. - Radiology CXR Xray Interpretation: No Acute Changes - No active disease. Endotracheal tube in satisfactory position. ED physician has reviewed this report. Radiology Interpretation Completed By: Radiologist Asthma Course/Dx - Course Course Of Treatment: patient intubated immediately upon arrival as she had a gcs of 4, did not require any medications. Immediate improvement in mental status, labs an imaging consistent with hypercapneic resp failure secondary to copd - Diagnoses Provider Diagnoses: Acute hypercapnic respiratory failure - Critical Care Time Critical Care Time: 30-74 min - i provided 60 min of critial care time for this patient not including time for procedures; included clinical evals to treatments , ventilator adjustments, and consultants and family conversations Discharge - Sign-Out/Discharge Documenting (check all that apply): Discharge/Admit/Transfer - Discharge Plan Condition: Guarded Disposition: [facility]MITT[facility] TO [facility] - Billing Disposition and Condition Condition: GUARDED Disposition: [facility] [place] The documentation as recorded by the Vinh fernández Natalie accurately reflects the service I personally performed and the decisions made by Lindsey barry Dong, MD.
--- NOTE | 2017-07-30 19:41 | DS ---
CC: Dr. Jose Torres; Dr. Gleason DISCHARGE SUMMARY: DATE OF ADMISSION: 07/23/17. DATE OF DISCHARGE: 07/29/17. PRIMARY CARE PROVIDER: Dr. Jose Torres. BLIND HANGER: Dr. Gleason. DISCHARGE DIAGNOSES: 1. Severe hypercapnic/hypoxic respiratory failure requiring intubation. 2. Severe asthma exacerbation. 3. Newly diagnosed hypertension. 4. Lactic acidosis from respiratory failure. 5. Leukocytosis. 6. Troponin elevation likely secondary to demand ischemia. SECONDARY DIAGNOSES: 1. Severe persistent asthma. 2. Morbid obesity. 3. Obstructive sleep apnea, on continuous positive airway pressure. 4. Status post laparoscopic banding. MEDICATION LIST: 1. Albuterol HFA one puff inhaled q.6 hours p.r.n. for shortness of breath. 2. Albuterol nebulized q.4 hours p.r.n. for shortness of breath or wheezing. 3. Sertraline 100 mg p.o. daily. 4. Ferrous sulfate mg p.o. b.i.d. 5. Meclizine 25 mg p.o. t.i.d. as needed for dizziness. 6. Abilify 5 mg p.o. daily. 7. Montelukast 10 mg p.o. daily. 8. Fluticasone and salmeterol 500/50 one puff inhaled b.i.d. 9. Theophylline 300 mg p.o. b.i.d. 10. Spiriva one capsule inhaled daily. 11. Prednisone taper as follows: 40 mg for 5 days, 30 mg for 5 days, 20 mg for 5 days, 10 mg for 5 days, 5 mg for 5 days and stop. 12. Famotidine 20 mg p.o. daily. 13. Aspirin 81 mg p.o. daily. 14. Amlodipine 10 mg p.o. daily. HOSPITAL COURSE: Mrs. Lamar is a 42-year-old lady with a past medical history as stated above that presented to the emergency room as an ABC alert. As per HPI, the patient developed sudden onset of s evere respiratory distress. Her son gave her a shot of subcutaneous epinephrine and the son had done some CPR prior to her arrival possibly, but no CPR was needed in the ED, so it is not clear if the p atient had a true cardiac arrest. At any case the patient was in respiratory failure with the pulse in the ER. She was bagged, saturation in the 90s, but had poor mental status, so for the reason, she was intubated in the emergency room. For more details above her presentation, I refer to her histor y and physical. The patient's blood gas was compatible with hypercapnic respiratory failure with the pH of 7.17, pCO2 of 58, pO2 of 215. The patient was found to have asthma exacerbation, but there did not seem to be any infectious culprit. After being extubated, the patient was able to tell me that she was doing her hair in the bathroom wh en all of a sudden she developed shortness of breath. She was intubated in the past and she knew anum t this episode will progress first, but she told her son what is happening and that is when he inject ed epinephrine and brought her to the emergency room. She states that the two prior episodes of intu bation were secondary to food allergy to SESAME and to NUTS, but this episode she could not remember any culprit. The patient was treated with: 1. Bronchodilators. 2. Steroids. 3. Montelukast. 4. Theophylline She had an improvement of her symptoms. She was extubated on July 26 and she did well after extubat ion. She was transferred to the medical floor where she continued to receive treatment and eventuall y she did not require anymore supplemental oxygen and felt that her breathing was back to her baselin e. She states her best peak flow is around 190 to 200, and those were the numbers we are getting evelin or to discharge. On admission, the patient was noted to have troponin elevation at 0.11, 0.13, 0.09. An echocardiogram was performed and it showed ejection fraction of 60% to 65% with no wall motion abnormalities, only [id number] pulmonary hypertension. She was seen in consultation by Cardiology (Dr. Bains). Th ere was some question of possible myopericarditis, as the patient was found to have a possible perica rdial friction rub and had some EKG changes with minor troponin elevation, but the echocardiogram did not seem to support this diagnosis, so the impression is that she likely had increased demand in the setting of asthma exacerbation and respiratory failure. CTA of the chest was a limited study, but was negative for pulmonary embolism. There was a 0.4 cm nod ule in the left lower lobe and the recommendation will be for followup CT as outpatient. The patient was also seen in consultation by Dr. Gleason and she was agreeable with the current therap y. The patient is medically stable for discharge at this time to follow up with Dr. Torres and Dr. Gleason as outpatient. Dr. Gleason plans to continue to work up for her hypercapnia. A stress test can be co nsidered as outpatient when the patient's respiratory status is more stable, but as stated above I re ally believe this troponin elevation was secondary to demand or not coronary artery disease. During the admission, the patient was also found to be very hypertensive and even after extubation an d improvement of her respiratory status, the hypertension persisted. She is being discharged home on amlodipine and this drug has controlled her blood pressure well, but she will need followup as outpa tient. The patient is medically stable for discharge today. PHYSICAL EXAMINATION: Vital Signs: Temperature of 97.6, heart rate is 80, respiratory rate is 16, o xygen saturation is 98% on room air, blood pressure is 138.75. General: The patient is a pleasant, obese lady, sitting up in bed, in no acute distress. CVS: Normal S1 and S2. Regular rate and rhyth m. Chest breath sounds bilaterally with no added sounds. Abdomen is obese. Bowel sounds are presen t. Extremities: No edema. Neuro: She is alert and oriented x3. Able to move all 4 extremities. DIET: Low salt diet. ACTIVITY: As tolerated. DISPOSITION: To Home. STATUS WHILE IN THE HOSPITAL: Inpatient. Please keep in mind that this is a summarized version of this patient's hospital stay. If you need m ore information, please feel free to call me at [phone] or please refer toe full medical records . TIME SPENT: Approximately, 45 minutes were spent to complete this discharge. [id number]/[facility] #: [id number]
== END 2017-07-29 13:05 | disposition home or self-care (01) | DRG 208 ==
LOC: ED 19:11 → ICU 20:13 → MED 07-27 17:10
PROVIDERS: ADMIT Internal Medicine Critical Care Medicine; ATTEND Internal Medicine
PROC: 0BH17EZ Insertion of Endotracheal Airway into Trachea, Via Natural or Artificial Opening (ICD-10-PCS; principal; 2017-07-23)
PROC: 5A1945Z Respiratory Ventilation, 24-96 Consecutive Hours (ICD-10-PCS; 2017-07-23)
DX: J45.51 Severe persistent asthma with (acute) exacerbation (principal); J96.02 Acute respiratory failure with hypercapnia; E87.2 Acidosis; E87.3 Alkalosis; I24.8 Other forms of acute ischemic heart disease; Z68.41 Body mass index [BMI] 40.0-44.9, adult; G47.33 Obstructive sleep apnea (adult) (pediatric); I27.20 Pulmonary hypertension, unspecified; E66.01 Morbid (severe) obesity due to excess calories; D72.829 Elevated white blood cell count, unspecified; F41.0 Panic disorder [episodic paroxysmal anxiety]; I10 Essential (primary) hypertension; J38.4 Edema of larynx; R91.1 Solitary pulmonary nodule; Z79.82 Long term (current) use of aspirin; Z98.84 Bariatric surgery status; Z98.51 Tubal ligation status; Z82.49 Family history of ischemic heart disease and other diseases of the circulatory system; Z83.3 Family history of diabetes mellitus; Z91.018 Allergy to other foods
CPT/HCPCS: 36415; 36600; 71045; 71275; 80048; 80053; 80307; 81003; 81015; 82803; 83036; 83605; 84443; 84484; 85025; 85027; 85060; 85610; 85730; 87040; 87086; 87502; 87641; 93005; 93306; 94003; 94640; 94664; 99285; A9270-GY; C8929; J0330; J1170; J1644; J1650; J2250; J2310; J2704; J2920; J2930; J3010; J7512; Q9967

== ENCOUNTER 2018-05-18 22:22 | Inpatient (IN) | payer MEDICARE, MEDICAID ==
[2018-05-18] MEDS ORDERED: Albuterol 0.5% CONC NEB.SOL* 5 MG/ML 20 ml BOT INH ONE (22:25)
--- NOTE | 2018-05-18 22:39 | ED ---
Shortness of Breath - HPI Summary HPI Summary: A 42 y/o female brought in by [facility] ambulance presents to [facility] with a chief complaint of SOB tonight. Per EMS, the patient was found with her breathing stopped and was unresponsive upon EMS arrival on the scene. EMS reports that CPR was initiated by family and she started breathing again. Per family she was wheezing before she collapsed at the top of stairs. CPAP was applied and her breathing improved. At triage her pain was rated as a 0/10 in severity. She denies any CP. She reports a Hx of asthma. - History of Current Complaint Chief Complaint: EDRespiratoryDistress Time Seen by Provider: 05/18/18 22:25 Hx Obtained From: Patient, EMS Onset/Duration: Sudden Onset, Lasting Minutes, Still Present Timing: Constant Current Severity: Severe Dyspnea At: Rest Aggrevating Factors: Nothing Alleviating Factors: Nothing Associated Signs & Symptoms: Negative - Chest pain, fever - Allergy/Home Medications Allergies/Adverse Reactions: Allergies Allergy/AdvReac Type Severity Reaction Status Date / Time almond Allergy Anaphylatic Verified 07/23/17 20:18 Shock sesame oil Allergy Anaphylatic Verified 07/23/17 20:18 Shock Tree Nuts Allergy Anaphylatic Verified 04/29/17 12:41 Shock nuts Allergy Anaphylatic Uncoded 04/29/17 12:41 Shock PMH/Surg Hx/FS Hx/Imm Hx Endocrine/Hematology History: Denies: Hx Diabetes Cardiovascular History: Denies: Hx Coronary Artery Disease, Hx Hypertension, Hx Pacemaker/ICD Respiratory History: Reports: Hx Asthma, Hx Chronic Obstructive Pulmonary Disease (COPD), Hx Sleep Apnea, Other Respiratory Problems/Disorders - SLEEP APNEA GI History: Reports: Hx Gastroesophageal Reflux Disease History: Denies: Hx Renal Disease Sensory History: Denies: Hx Contacts or Glasses, Hx Hearing Aid Opthamlomology History: Denies: Hx Contacts or Glasses Psychiatric History: Reports: Hx Panic Disorder - ANXIETY - Surgical History Surgery Procedure, Year, and Place: Lung surgery, unsure what type. LAB BAND. TUBAL LIGATION. BREAST REDUCTION Hx Anesthesia Reactions: No - Immunization History Date of Tetanus Vaccine: unk Date of Influenza Vaccine: unk Infectious Disease History: No Infectious Disease History: Denies: Traveled Outside the [place] in Last 30 Days - Family History Known Family History: Positive: Cardiac Disease, Hypertension, Diabetes - Social History Alcohol Use: None Hx Substance Use: No Substance Use Type: Reports: None Hx Tobacco Use: No Smoking Status (MU): Never Smoked Tobacco Review of Systems Negative: Fever Negative: Chest Pain Positive: Shortness Of Breath All Other Systems Reviewed And Are Negative: Yes Physical Exam - Summary Physical Exam Summary: Appearance: Middle aged female awake and alert but in obvious respiratory distress Skin: Warm, dry, no obvious rash Eyes: sclera anicteric, no conjunctival pallor ENT: mucous membranes moist, pharynx appears normal Neck: Supple, nontender Respiratory: Diffuse wheezing and decreased aeration. Cardiovascular: Tachycardic, Normal S1, S2. No murmurs. Normal distal pulses in tibial and radial bilaterally. Abdomen: Soft, nontender, normal active bowel sounds present Musculoskeletal: Normal, Strength/ROM Intact Neurological: A&Ox3, awake and alert, mentation is normal, speech is fluent and appropriate Psychiatric: affect is normal, does not appear anxious or depressed Triage Information Reviewed: Yes Vital Signs On Initial Exam: Initial Vitals Temp Pulse Resp BP Pulse Ox 98.8 F 110 22 121/93 100 05/18/18 22:25 05/18/18 22:25 05/18/18 22:25 05/18/18 22:25 05/18/18 22:25 Vital Signs Reviewed: Yes Diagnostics - Vital Signs Vital Signs Temp Pulse Resp BP Pulse Ox 05/18/18 22:25 98.8 F 110 22 121/93 100 - Laboratory Result Diagrams: 05/18/18 22:31 05/18/18 22:31 Lab Statement: Any lab studies that have been ordered have been reviewed, and results considered in the medical decision making process. - Radiology CXR Radiology Interpretation Completed By: ED Physician Summary of Radiographic Findings: No acute process. Pending official imaging report. - EKG 22:29 Cardiac Rate: Tachycardia - 108 bpm EKG Rhythm: Sinus Tachycardia Summary of EKG Findings: EKG at 22:29 showed Sinus tachycardia at 108 BPM, P waves, QRS complex, and T waves are within normal limits, T waves and intervals are normal, no ischemic changes. Re-Evaluation - Re-Evaluation First Eval Re-Evaluation Time: 23:04 Change: Improved Comment: Patient is better, more alert, less work of breathing. Course/Dx - Course Course Of Treatment: A 42 y/o female brought in by [facility] ambulance presents to [facility] with a chief complaint of SOB tonight. Per EMS, the patient was found with her breathing stopped and was unresponsive upon EMS arrival on the scene. EMS reports that CPR was initiated by family and she started breathing again. Per family she was wheezing before she collapsed at the top of stairs. CPAP was applied and her breathing improved. At triage her pain was rated as a 0/10 in severity. She denies any CP. She reports a Hx of asthma.EKG at 22:29 showed Sinus tachycardia at 108 BPM, P waves, QRS complex, and T waves are within normal limits, T waves and intervals are normal, no ischemic changes. CXR showed no acute process. In the ED course the patient was given Albuterol INH. Bloodowork and chemistries obtained. Lactic acid of 5.1 at 22:31. Case discussed with Dr. Tan, hospitalist, who accepted the patient for admission. The patient is agreeable with this plan. - Diagnoses Provider Diagnoses: Asthma exacerbation - Physician Notifications Discussed Care of Patient With: Arabella Tan Time Discussed With Above Provider: 23:08 Instructed by Provider To: Admit As Inpatient - Critical Care Time Critical Care Time: 30-74 min Discharge - Sign-Out/Discharge Documenting (check all that apply): Patient Departure - admit Patient Received Moderate/Deep Sedation with Procedure: No - Discharge Plan Condition: Guarded Disposition: ADMITTED TO [facility] Referrals: Natalie Ferguson MD [Primary Care Provider] - - Billing Disposition and Condition Condition: GUARDED Disposition: Admitted to [facility] - Attestation Statements Document Initiated by Aylin: Yes Documenting Scribe: Shon Villa Provider For Whom Aylin is Documenting (Include Credential): Jose Ramon Diamond MD [facility] Attestation: Shon Avila, scribed for Jose Ramon Diamond MD on 05/19/18 at 0219. Scribe Documentation Reviewed: Yes Provider Attestation: The documentation as recorded by the Shon fernández accurately reflects the service I personally performed and the decisions made by me, Jose Ramon Diamond MD Status of Scribe Document: Viewed
[2018-05-18 22:41] LABS: Hematocrit 36 % (35-47); Hemoglobin 10.7 g/dl (12.0-16.0); Mean Corpuscular HGB Conc 30 g/dl (31-36); Mean Corpuscular Hemoglobin 21 pg (27-31); Mean Corpuscular Volume 70 fL (80-97); Platelet Count 510 10^3/ul (150-450); Red Blood Count 5.22 10^6/ul (4.00-5.40); Red Cell Distribution Width 19 % (10.5-15); White Blood Count 11.2 10^3/ul (3.5-10.8)
[2018-05-18 22:50] LABS: ABS Basophils 0.1 10^3/ul (0-0.2); ABS Eosinophils 0 10^3/ul (0-0.6); ABS Lymphocytes 4.3 10^3/ul (1.0-4.8); ABS Monocytes 0.8 10^3/ul (0-0.8); ABS Nucleated RBC 0 10^3/ul; Eosinophil % 0 %; Lymphocyte % 38.3 %; Nucleated Red Blood Cells % 0
[2018-05-18 22:56] LABS: ALT 14 U/L (7-52); AST 19 U/L (13-39); Albumin 4.5 g/dL (3.2-5.2); Albumin/Globulin Ratio 1.6 (1-3); Alkaline Phosphatase 61 U/L (34-104); Anion Gap 16 mmol/L (2-11); BUN/Creatinine Ratio 14.5 (8-20); Blood Urea Nitrogen 11 mg/dL (6-24); CO2 Carbon Dioxide 21 mmol/L (22-32); Calcium 8.3 mg/dL (8.6-10.3); Chloride 100 mmol/L (101-111); EGFR Non-African American 82.7 (>60); Globulin 2.8 g/dL (2-4); Glucose 184 mg/dL (70-100); Potassium 3.3 mmol/L (3.5-5.0); Sodium 137 mmol/L (135-145); Total Protein 7.3 g/dL (6.4-8.9)
[2018-05-18 23:03] LABS: HCG Pregnancy < 0.60 mIU/mL
[2018-05-18 23:41] LABS: Influenza A Molecular NEGATIVE (Negative); Influenza B Molecular NEGATIVE (Negative)
[2018-05-19] MEDS ORDERED: NS 0.9% 1000 ML** 1,000 ML IV SCH
[2018-05-19] MEDS ORDERED: Potassium Chlor TAB* 20 MEQ TAB.ER PO ONE (00:05)
[2018-05-19 00:23] LABS: Urine Appearance Cloudy; Urine Bacteria Absent (Absent); Urine Bilirubin Negative (Negative); Urine Blood 1+ (Negative); Urine Color Straw; Urine Glucose 1+(50 mg/dL) (Negative); Urine Ketones Negative (Negative); Urine Nitrite Negative (Negative); Urine Protein 2+(100 mg/dL) (Negative); Urine Red Blood Cell Trace(0-2/hpf) (Absent); Urine Specific Gravity 1.011 (1.010-1.030); Urine Urobilinogen Negative (Negative); Urine White Blood Cell Trace(0-5/hpf) (Absent)
[2018-05-19 00:24] LABS: Theophylline 11.3 mcg/mL (10-20.0)
[2018-05-19] MEDS ORDERED: methylPREDNISolone SOD 40 MG* 1 ML VIAL IV SCH (01:00)
--- NOTE | 2018-05-19 02:34 | HP ---
CC: Dr. Ferguson; Dr. Gleason.* HISTORY AND PHYSICAL: DATE OF ADMISSION: 05/19/18 PRIMARY CARE PROVIDER: Dr. Ferguson. APPLICATION INTEGRATION SPECIALIST: Dr. Gleason. CHIEF COMPLAINT: Shortness of breath and unresponsive episode at home. HISTORY OF PRESENT ILLNESS: Ms. Lamar is a 42-year-old female who has a history of severe persistent asthma and on a good day is limited in her mobility due to her breathing who presents to the emergency room after collapsing at home, being briefly unresponsive. The patient states that she was making dinner for her family and noted that she was a little bit wheezy. She then began to feel tight in the chest, so she began nebulizer treatments as well as utilizing her inhalers. She told her family to call 911, and prior to EMS arriving at her house, she collapsed at home. Her family reportedly used her EpiPen on her and began CPR. EMS ultimately placed the patient on BiPAP and transported her to the emergency room. The patient states she does not remember getting into the ambulance, though she does remember being unloaded from the ambulance once at the hospital. She states currently her breathing is feeling almost back to normal, though she continues to feel slightly wheezy. She also states that her chest feel tight. PAST MEDICAL HISTORY: 1. Severe persistent asthma. 2. YOLANDA, utilizing CPAP. 3. Hypertension. 4. GERD. 5. Obesity. PAST SURGICAL HISTORY: 1. Lap-band surgery. 2. Tubal ligation. 3. Lung surgery in the distant past. MEDICATIONS: 1. Spiriva 1 puff inhaled daily. 2. Sertraline 100 mg p.o. daily. 3. Singulair 10 mg p.o. daily. 4. Advair 500/50 one puff inhaled twice daily. 5. Ferrous sulfate 325 mg p.o. b.i.d. 6. Famotidine 20 mg p.o. daily. 7. Aspirin 81 mg p.o. daily. 8. Amlodipine 10 mg p.o. daily. 9. Albuterol 1 puff inhaled q.6 hours p.r.n. shortness of breath. 10. Albuterol 1 neb inhaled q.4 hours p.r.n. shortness of breath. 11. Abilify 5 mg p.o. daily. 12. Theophylline 300 mg p.o. b.i.d. 13. Meclizine 25 mg p.o. t.i.d. p.r.n. dizziness. ALLERGIES: No known drug allergies, but she is allergic to almond, sesame oil and tree nuts. FAMILY HISTORY: Mom is living, she is 65, she also has asthma. Dad is at the age of 47, he had diabetes and CHF. SOCIAL HISTORY: The patient is a nonsmoker. She does not drink alcohol routinely. No recreational drug use. 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 She is . She has 5 children. She indicates that her , Miguel Ángel, or her mom, Melyssa, would be her healthcare proxies. REVIEW OF SYSTEMS: A complete 11-system review of systems was obtained. Pertinent positives and negatives are as per HPI and otherwise negative. PHYSICAL EXAMINATION GENERAL: The patient is a well-developed, morbidly obese, middle aged female, seen sitting up in the stretcher, appearing to be wiped out but in no acute distress. VITAL SIGNS: Blood pressure 129/74, pulse 98, respirations 17, temp 98.8, O2 sat 100% on 40 L of Vapotherm. HEENT: Pupils are equal and round. Extraocular muscles are intact. Oropharynx is clear. Oral mucosa is slightly dry. There is no submandibular, cervical, or supraclavicular adenopathy. Thyroid is not enlarged. No thyroid nodules noted. PULMONARY: Breath sounds are markedly diminished throughout all lungs troncoso. There is diffuse scattered wheezing and air movement sounds restricted. CARDIAC: Normal S1, S2. Heart rate is mildly tachycardiac. I do not appreciate any murmurs. There is no lower extremity edema. ABDOMEN: Bowel sounds are present. Abdomen is soft and nontender, nondistended. MUSCULOSKELETAL: There is no cyanosis or clubbing of the digits. There is full active range of all 4 extremities. SKIN: Warm and dry. There are no rashes. NEUROLOGIC: Cranial nerves II through XII are grossly intact. Sensation is intact to light touch throughout. Strength is 5/5 and symmetric in both upper and lower extremities bilaterally. PSYCH: The patient is alert. She is oriented x3. Affect appears appropriate. DIAGNOSTIC STUDIES/LAB DATA: WBC 11.2, hemoglobin 10.7, hematocrit 36, platelets 510. Sodium 137, potassium 3.3, chloride 100, CO2 of 21, BUN 11, creatinine 0.76, glucose 184, lactic acid 5.1, calcium 8.3. Bilirubin 0.2, AST 19, ALT 14, alk phos 61. Troponin 0. Albumin 4.5. Influenza A and B negative. VBG 7.. Chest x-ray to my interpretation does not reveal any evidence of infiltrate. ASSESSMENT AND PLAN: Ms. Lamar is a 42-year-old female with a history of severe persistent asthma who presents to the emergency room with a sudden onset of an acute asthma exacerbation with an unresponsive episode likely secondary to metabolic encephalopathy. 1. Status asthmaticus. At this point, the patient continues to have diffuse wheezing throughout. Her air movement is still restricted. The patient will continue on Vapotherm for now. She is on a continuous neb currently, but once off the continuous neb she will have albuterol nebulizer treatments every 4 hours around the clock. She will also continue on Solu-Medrol 40 mg IV q.8 hours. She had a dose of 125 mg already in the emergency room. At this point with the chest x- ray being clear and without fever or leukocytosis, I will not start antibiotic therapy. The patient did have flu swab sent and this was negative for influenza. The patient does have a mildly elevated white blood cell count, though this likely is reactive from this acute event. The patient will also continue on her usual dose of Singulair and theophylline. A theophylline level has been ordered and is pending. The patient will also continue on Spiriva and inhaled corticosteroid. 2. Lactic acidosis. This is likely secondary to the patient's respiratory failure from the asthma exacerbation. Follow up lactic acid level has been ordered. The patient will be receiving normal saline. 3. Hypertension. The patient will continue on her usual dose of amlodipine. 4. Gastroesophageal reflux disease, continue famotidine. 5. Depression, continue Abilify and sertraline. 6. DVT prophylaxis. According to the Adult Thrombosis Prophylaxis Risk Factor Assessment Guide, the patient has a total risk factor score of 3, making her high risk, so will be placed on Lovenox 40 mg subcutaneous daily. 7. Code status is full. TIME SPENT: Sixty-five minutes was spent admitting this patient. [id number]/[facility] #: [id number] APRIL
[2018-05-19] MEDS: Albuterol 2.5 MG/3 ML NEB.SOL* (0.083%) INH SCH ×7 (03:08→23:01)
[2018-05-19] MEDS: methylPREDNISolone SOD 40 MG* 1 ML VIAL IV SCH ×3 (05:31→21:05)
[2018-05-19] MEDS: Tiotropium CAP.INH* CAP.INH/18 MCG (USE ORDER SET !) INH SCH (08:20)
[2018-05-19] MEDS: Mometasone/Formoter 200/5 MDI INH SCH ×2 (08:20→19:36)
[2018-05-19] MEDS: Montelukast Sodium TAB* 10 MG PO SCH (08:28)
[2018-05-19] MEDS: Famotidine TAB* 20 MG PO SCH (08:28)
[2018-05-19] MEDS: Sertraline* 100 MG TAB PO SCH (08:29)
[2018-05-19] MEDS: amLODIPine TAB* 5 MG PO SCH (08:29)
[2018-05-19] MEDS: ARIPiprazole TAB* 5 MG PO SCH (08:29)
[2018-05-19] MEDS: Aspirin 81 mg CHEW TAB* 81 MG TAB.CHEW PO SCH (08:29)
[2018-05-19] MEDS: Enoxaparin(*) 40 MG/0.4 ML SYR SUBCUT SCH (08:29)
[2018-05-19] MEDS: Theophylline TAB* 300 MG PO SCH ×2 (08:29→21:05)
[2018-05-19] MEDS ORDERED: Tiotropium CAP.INH* CAP.INH/18 MCG (USE ORDER SET !) INH SCH (09:00)
[2018-05-19] MEDS ORDERED: Spiriva Inhaler DEVICE* 1 EACH DEVICE INH ONE (09:00)
[2018-05-19] MEDS ORDERED: Ferrous Sulfate TAB* 325 MG PO SCH (09:00)
--- NOTE | 2018-05-19 15:08 | PN ---
Subjective Interval History: Feeling better than before admission but with significant dyspnea on ambulating (to commode in same room). Denies any other symptoms - no cough, CP, abd pain, sore throat, fevers, chills. Objective Active Medications: Albuterol (Ventolin 2.5 Mg/3 Ml Neb.Tiffanie*) 2.5 mg INH [id number] AWAKE [facility] Last Admin: 05/19/18 10:57 Dose: 2.5 mg Amlodipine Besylate (Norvasc Tab*) 10 mg PO DAILY [facility] Last Admin: 05/19/18 08:29 Dose: 10 mg Aripiprazole (Abilify Tab*) 5 mg PO DAILY [facility] Last Admin: 05/19/18 08:29 Dose: 5 mg Aspirin (Aspirin 81 Mg Chew Tab*) 81 mg PO DAILY [facility] Last Admin: 05/19/18 08:29 Dose: 81 mg Enoxaparin Sodium (Lovenox(*)) 40 mg SUBCUT Q24H [facility] Last Admin: 05/19/18 08:29 Dose: 40 mg Famotidine (Pepcid Tab*) 20 mg PO DAILY [facility] Last Admin: 05/19/18 08:28 Dose: 20 mg Ferrous Sulfate (Ferrous Sulfate Tab*) 325 mg PO DAILY [facility] Methylprednisolone Sodium Succinate (Solu-Medrol 40 Mg) 40 mg IV 0600,1400, 2200 [facility] Last Admin: 05/19/18 14:23 Dose: 40 mg Mometasone Furoate/Formoterol Fumar (Dulera 200/5 Mdi*) 2 puff INH BID [facility] Last Admin: 05/19/18 08:20 Dose: 2 puff Montelukast Sodium (Singulair Tab*) 10 mg PO DAILY [facility] Last Admin: 05/19/18 08:28 Dose: 10 mg Sertraline HCl (Zoloft*) 100 mg PO DAILY [facility] Last Admin: 05/19/18 08:29 Dose: 100 mg Theophylline (Kumar Dur*) 300 mg PO BID [facility] Last Admin: 05/19/18 08:29 Dose: 300 mg Tiotropium Marble (Spiriva Cap.Inh*) 1 cap INH DAILY [facility] Last Admin: 05/19/18 08:20 Dose: 1 cap Vital Signs - 8 hr 05/19/18 05/19/18 05/19/18 07:00 07:15 07:31 Temperature Pulse Rate 86 86 82 Respiratory 19 22 23 Rate Blood Pressure 139/86 148/87 127/80 (mmHg) O2 Sat by Pulse 95 94 95 Oximetry 05/19/18 05/19/18 05/19/18 07:45 08:00 08:16 Temperature 97 F Pulse Rate 85 84 82 Respiratory 25 20 21 Rate Blood Pressure 141/74 149/96 133/88 (mmHg) O2 Sat by Pulse 95 97 95 Oximetry 05/19/18 05/19/18 05/19/18 08:31 08:45 09:00 Temperature Pulse Rate 83 79 85 Respiratory 23 18 18 Rate Blood Pressure 135/84 156/91 (mmHg) O2 Sat by Pulse 100 100 100 Oximetry 05/19/18 05/19/18 05/19/18 09:01 09:16 09:31 Temperature Pulse Rate 89 92 84 Respiratory 24 18 22 Rate Blood Pressure 136/91 143/90 118/71 (mmHg) O2 Sat by Pulse 96 98 98 Oximetry 05/19/18 05/19/18 05/19/18 09:45 10:00 10:15 Temperature Pulse Rate 76 78 78 Respiratory 24 18 20 Rate Blood Pressure 121/76 126/75 121/74 (mmHg) O2 Sat by Pulse 100 100 100 Oximetry 05/19/18 05/19/18 05/19/18 10:31 10:58 11:00 Temperature Pulse Rate 91 90 87 Respiratory 18 24 Rate Blood Pressure 119/82 153/80 (mmHg) O2 Sat by Pulse 100 100 100 Oximetry 05/19/18 05/19/18 05/19/18 11:16 11:30 11:46 Temperature Pulse Rate 88 86 94 Respiratory 21 23 26 Rate Blood Pressure 146/79 147/82 158/85 (mmHg) O2 Sat by Pulse 99 97 96 Oximetry 05/19/18 05/19/18 05/19/18 12:00 12:01 12:16 Temperature 97.5 F Pulse Rate 98 96 91 Respiratory 21 24 16 Rate Blood Pressure 165/83 132/97 (mmHg) O2 Sat by Pulse 100 100 100 Oximetry 05/19/18 05/19/18 05/19/18 12:31 12:46 13:00 Temperature Pulse Rate 90 92 88 Respiratory 20 18 21 Rate Blood Pressure 142/86 141/79 (mmHg) O2 Sat by Pulse 98 98 100 Oximetry 05/19/18 05/19/1819 13:01 13:16 13:30 Temperature Pulse Rate 88 94 97 Respiratory 17 23 16 Rate Blood Pressure 142/78 138/84 161/91 (mmHg) O2 Sat by Pulse 100 100 100 Oximetry 05/19/18 05/19/18 05/19/18 13:46 14:00 14:01 Temperature Pulse Rate 93 98 96 Respiratory 20 20 Rate Blood Pressure 159/95 139/86 (mmHg) O2 Sat by Pulse 97 98 100 Oximetry Oxygen Devices in Use Now: High Flow Heated Nasal Cannula Appearance: nontoxic, calm but cannot speak in full sentences Respiratory: - - diffuse musical wheeze, impaired air entry Cardiovascular: RRR Abdominal: NL Sounds; No Tenderness; No Distention Extremities: No Edema Skin: - - diaphoretic - pt reports this is baseline Result Diagrams: 05/18/18 22:31 05/18/18 22:31 Microbiology and Other Data: Microbiology 05/19/18 04:25 Nasal Screen MRSA (PCR) - Final Nasal Mrsa Not Detected 05/18/18 23:20 Influenza Types A,B Antigen - Final Nasopharyngeal Specimen received for Influenza A/B Molecular testing Assess/Plan/Problems-Billing Assessment: 42W with h/o severe persistent asthma, obesity, HTN, depression, who presents with severe dyspnea. Without signs of infection, now improving s/p BiPAP, nebs, IV steroids. - Patient Problems (1) Asthma exacerbation Comment: Improving. No e/o infection at this time. - cont IV steroids, methylprednisolone 40mg IV q8h - cont nebs - cont home Spiriva, montelukast, Advair, theophylline (therapeutic @ 12) - nonitor peak flow pre and post treatment (2) Depression Comment: - cont home setraline and aripiprazole (3) HTN (hypertension) Comment: - continue amlodipine. (4) YOLANDA (obstructive sleep apnea) Comment: - Continue CPAP. (5) GERD (gastroesophageal reflux disease) Comment: - cont home famotidine (6) DVT prophylaxis Comment: - SQ lovenox Status and Disposition: ICU for close monitoring of respiratory status. Home when on room air.
[2018-05-19] MEDS ORDERED: hydrALAZINE TAB* 10 MG PO ONE (20:53)
[2018-05-20] MEDS: Albuterol 2.5 MG/3 ML NEB.SOL* (0.083%) INH SCH ×2 (03:19→08:30)
[2018-05-20] MEDS: methylPREDNISolone SOD 40 MG* 1 ML VIAL IV SCH (05:20)
[2018-05-20 05:45] LABS: ABS Basophils 0 10^3/ul (0-0.2); ABS Eosinophils 0 10^3/ul (0-0.6); ABS Lymphocytes 0.8 10^3/ul (1.0-4.8); ABS Monocytes 0.4 10^3/ul (0-0.8); ABS Neutrophils 12.1 10^3/ul (1.5-7.7); ABS Nucleated RBC 0 10^3/ul; Eosinophil % 0 %; Hematocrit 30 % (33-41); Hemoglobin 9.2 g/dL (12.0-16.0); Lymphocyte % 5.8 %; Mean Corpuscular HGB Conc 31 g/dL (31-36); Mean Corpuscular Hemoglobin 21 pg (27-31); Mean Corpuscular Volume 68 fL (80-97); Mean Platelet Volume 8.3 fL (7.4-10.4); Nucleated Red Blood Cells % 0; Platelet Count 399 10^3/uL (150-450); Red Blood Count 4.41 10^6 /uL (3.70-4.87); Red Cell Distribution Width 18 % (10.5-15); White Blood Count 13.3 10^3/uL (3.5-10.8)
[2018-05-20 06:03] LABS: EGFR African American 174.2 (>60); Potassium 3.8 mmol/L (3.5-5.0)
[2018-05-20] MEDS: Tiotropium CAP.INH* CAP.INH/18 MCG (USE ORDER SET !) INH SCH (08:30)
[2018-05-20] MEDS: Mometasone/Formoter 200/5 MDI INH SCH (08:30)
[2018-05-20] MEDS: amLODIPine TAB* 5 MG PO SCH (08:41)
[2018-05-20] MEDS: ARIPiprazole TAB* 5 MG PO SCH (08:41)
[2018-05-20] MEDS: Aspirin 81 mg CHEW TAB* 81 MG TAB.CHEW PO SCH (08:42)
[2018-05-20] MEDS: Famotidine TAB* 20 MG PO SCH (08:42)
[2018-05-20] MEDS: Enoxaparin(*) 40 MG/0.4 ML SYR SUBCUT SCH (08:42)
[2018-05-20] MEDS: Theophylline TAB* 300 MG PO SCH (08:43)
[2018-05-20] MEDS: Montelukast Sodium TAB* 10 MG PO SCH (08:43)
[2018-05-20] MEDS: Sertraline* 100 MG TAB PO SCH (08:43)
[2018-05-20] MEDS ORDERED: Ferrous Sulfate TAB* 325 MG PO SCH (09:00)
[2018-05-20] MEDS ORDERED: predniSONE TAB* 20 MG PO SCH (12:00)
[2018-05-20] MEDS ORDERED: Albuterol/Ipratropium NEB.SOL* Albuterol 2.5 MG/Ipratropium 0.5 MG 3 ML INH SCH (13:00)
[2018-05-20 13:23] VITALS: BP 136/81
--- NOTE | 2018-05-20 14:56 | DS ---
CC: Dr. Natalie Ferguson; Dr. Petar Garcia DISCHARGE SUMMARY: DATE OF ADMISSION: 05/18/18 DATE OF DISCHARGE: 05/20/18 PRIMARY CARE PHYSICIAN: Dr. Natalie Ferguson ALLERGY AND ROUTE DRIVER: Dr. Petar Garcia. DISPOSITION: Home. CONDITION: Improved. PRIMARY DIAGNOSIS: Asthma exacerbation. PERTINENT STUDIES theophylline level 11.3 Chest x-ray showed no acute cardiopulmonary disease. HISTORY OF PRESENT ILLNESS: 42-year-old woman with a history of severe persistent asthma with history of multiple intubations, who at baseline is limited in her mobility due to her symptoms of dyspnea, who presented to the emergency room after a brief episode of unresponsiveness at home. She states that she was cooking dinner and she was feeling wheezy with tightness in the chest. She began nebulizer treatments and asked her family to call 911. Before EMS arrival, she had collapsed at home and her family reports using her EpiPen and beginning chest compressions on her. When EMS arrived, she was placed on BiPAP and transported to the emergency room. HOSPITAL COURSE: In the ER, she reported that her breathing feels near her normal baseline after coming off of BiPAP. She was started on IV steroids as well as high flow O2 and admitted to the ICU for treatment of asthma exacerbation. She was not exhibiting signs of infection, so she was not started on antibiotics during this admission. By day of discharge, she was able to come off supplemental oxygen and maintain an oxygen saturation in the high 90s. She reports dyspnea at her baseline, significantly improved from day of presentation to the hospital. Otherwise, 10-point review of systems is negative. PHYSICAL EXAMINATION: On physical exam, the patient remained afebrile, heart rate in the 80s, blood pressure 136/81, O2 saturation 95% on room air. General : Well- appearing woman, reclining in bed, fully conversant, speaking in full sentences. Heart: Regular rate and rhythm. No murmurs, gallops, or rubs. Lungs: Mild diffuse expiratory wheeze with good air movement. Abdomen: Soft, nontender. Lower Extremities: Warm, well perfused. No edema. DISCHARGE PLAN: The patient is to follow up with her primary care physician and also her social media marketing specialist at [facility]. She is to continue on an oral steroid taper. There were no other changes to her medications. Discussion was had with the patient about importance of avoiding secondhand cigarette smoke. She states that her and her have a plan to help him quit smoking. She was instructed to return to the hospital if she develops new fever or worsening cough, shortness of breath, or wheeze. She is to resume activity as tolerated. Eat a healthy diet with goal to lose weight. DISCHARGE MEDICATIONS: 1. Prednisone 40 mg daily for 2 days, then 30 mg for 2 days, 20 mg for 2 days, 10 mg for 2 days. 2. Singulair 10 mg daily. 3. Tiotropium inhaler 1 time daily. 4. Advair inhaler b.i.d. 5. Albuterol p.r.n. 6. Famotidine 20 mg daily. 7. Aspirin 81 mg daily. 8. Sertraline 100 mg daily. 9. Aripiprazole 5 mg daily. 10. Amlodipine 10 mg daily. 11. Iron 1 tablet daily on an empty stomach. TIME SPENT: Sixty minutes was spent on this discharge, more than half of which was spent with care, coordination at bedside, for interview and exam. [id number]/[facility] #: [id number] APRIL
== END 2018-05-20 14:00 | disposition home or self-care (01) | DRG 202 ==
LOC: ED 22:22 → ICU 05-19
PROVIDERS: ADMIT Hospitalist; ATTEND Internal Medicine
DX: J45.52 Severe persistent asthma with status asthmaticus (principal); J96.90 Respiratory failure, unspecified, unspecified whether with hypoxia or hypercapnia; E87.2 Acidosis; J45.51 Severe persistent asthma with (acute) exacerbation; Z68.41 Body mass index [BMI] 40.0-44.9, adult; J44.9 Chronic obstructive pulmonary disease, unspecified; K21.9 Gastro-esophageal reflux disease without esophagitis; F32.9 Major depressive disorder, single episode, unspecified; F41.0 Panic disorder [episodic paroxysmal anxiety]; E66.01 Morbid (severe) obesity due to excess calories; G47.33 Obstructive sleep apnea (adult) (pediatric); Z98.51 Tubal ligation status; Z82.49 Family history of ischemic heart disease and other diseases of the circulatory system; Z91.018 Allergy to other foods; Z83.3 Family history of diabetes mellitus; Z82.5 Family history of asthma and other chronic lower respiratory diseases; Z79.82 Long term (current) use of aspirin
CPT/HCPCS: 36415; 71045; 80048; 80053; 80198; 81003; 81015; 82803; 83036; 83605; 83735; 84484; 84702; 85025; 87086; 87641; 93005; 94640; 99285; A9270-GY; J1650; J2920; J7512

== ENCOUNTER 2019-10-15 19:08 | Inpatient (IN) ==
[2019-10-15] MEDS ORDERED: methylPREDNISolone 125 mg 2 ML VIAL IV ONE (19:24)
[2019-10-15] MEDS ORDERED: diPHENhydraMINE IV 50 MG/ML 1 ml VIAL (BENADRYL) IV ONE (19:24)
[2019-10-15] MEDS ORDERED: Famotidine IV 10 MG/ML 2 ml VIAL (20 mg) IV SLOW PU ONE (19:24)
[2019-10-15] MEDS ORDERED: NS 0.9% 1000 ml BAG 1,000 ML IV ONE (19:29)
[2019-10-15 19:53] LABS: ABS Eosinophils 0.2 10^3/ul (0-0.6); ABS Lymphocytes 2.8 10^3/ul (1.0-4.8); ABS Monocytes 0.7 10^3/ul (0-0.8); ABS Neutrophils 6.5 10^3/ul (1.5-7.7); Eosinophil % 2.2 %; Hematocrit 33 % (35-47); Hemoglobin 10.7 g/dL (12.0-16.0); Lymphocyte % 27.5 %; Mean Corpuscular HGB Conc 32 g/dL (31-36); Mean Corpuscular Hemoglobin 23 pg (27-31); Mean Corpuscular Volume 73 fL (80-97); Mean Platelet Volume 8.5 fL (7.4-10.4); Platelet Count 441 10^3/uL (150-450); Red Blood Count 4.59 10^6 /uL (3.70-4.87); Red Cell Distribution Width 18 % (10-15); White Blood Count 10.2 10^3/uL (3.5-10.8)
[2019-10-15 20:06] LABS: ALT 17 U/L (7-52); AST 18 U/L (13-39); Albumin 4.2 g/dL (3.2-5.2); Albumin/Globulin Ratio 1.6 (1-3); Alkaline Phosphatase 48 U/L (34-104); BUN/Creatinine Ratio 17.9 (8-20); Blood Urea Nitrogen 15 mg/dL (6-24); CO2 Carbon Dioxide 31 mmol/L (22-32); Calcium 9.3 mg/dL (8.6-10.3); Chloride 98 mmol/L (101-111); EGFR African American 88.3 (>60); Globulin 2.7 g/dL (2-4); Glucose 97 mg/dL (70-100); Sodium 139 mmol/L (135-145); Total Protein 6.9 g/dL (6.4-8.9)
[2019-10-15 20:14] LABS: Anion Gap 10 mmol/L (2-11); Potassium 2.7 mmol/L (3.5-5.0)
[2019-10-15] MEDS ORDERED: KCL 20 MEQ/100 ML IVPREMIX 20 MEQ/100 ML BAG IV ONE ×2 (20:15→22:00)
[2019-10-15] MEDS ORDERED: Albuterol 2.5mg/3 ml (0.083%) NEB.SOLN INH PRN (21:42)
[2019-10-15] MEDS ORDERED: Ondansetron 4 mg VIAL 2 MG/ML 2 ml VIAL IV PRN (21:42)
[2019-10-15] MEDS ORDERED: NS 0.9% 1000 ml BAG 1,000 ML IV SCH (21:45)
[2019-10-15] MEDS ORDERED: diPHENhydraMINE IV 50 MG/ML 1 ml VIAL (BENADRYL) IV PRN (21:45)
[2019-10-15] MEDS ORDERED: Albuterol HFA INHALER 8 gm MDI INH PRN (21:54)
[2019-10-15 22:29] LABS: % Iron Saturation 5 % (15-55); Iron 31 ug/dL (50-212); Total Iron Binding Capacity 620 mcg/dL (250-450); Transferrin 443 mg/dL (203-362); Unsaturated Iron Binding < 605 ug/dL
[2019-10-15 22:32] LABS: Magnesium 1.7 mg/dL (1.9-2.7)
[2019-10-15] MEDS ORDERED: Enoxaparin 40 MG/0.4 ML SYR SUBCUT SCH (22:38)
[2019-10-15 22:49] LABS: Ferritin 3.3 ng/mL (11-307)
[2019-10-15] MEDS ORDERED: Magnesium Sulfate 2 gm BAG 2 GM/50 ML BAG IVPB ONE (23:10)
[2019-10-15] MEDS: Mometasone/Formoter 200/5 MDI INH SCH (23:22)
[2019-10-16] MEDS: methylPREDNISolone SOD 40 mg/ml 1 ml VIAL IV SCH ×2 (03:18→09:38)
[2019-10-16 05:33] LABS: ABS Lymphocytes 0.5 10^3/ul (1.0-4.8); ABS Monocytes 0.1 10^3/ul (0-0.8); ABS Neutrophils 11.9 10^3/ul (1.5-7.7); Hematocrit 32 % (35-47); Hemoglobin 10.1 g/dL (12.0-16.0); Lymphocyte % 4.2 %; Mean Corpuscular HGB Conc 31 g/dL (31-36); Mean Corpuscular Hemoglobin 23 pg (27-31); Mean Corpuscular Volume 73 fL (80-97); Mean Platelet Volume 8.4 fL (7.4-10.4); Platelet Count 403 10^3/uL (150-450); Red Blood Count 4.42 10^6 /uL (3.70-4.87); Red Cell Distribution Width 19 % (10-15); White Blood Count 12.5 10^3/uL (3.5-10.8)
[2019-10-16 05:47] LABS: BUN/Creatinine Ratio 19.7 (8-20); Calcium 8.6 mg/dL (8.6-10.3); EGFR African American 127.8 (>60); EGFR Non-African American 105.6 (>60); Magnesium 2.2 mg/dL (1.9-2.7); Potassium 2.9 mmol/L (3.5-5.0)
[2019-10-16] MEDS ORDERED: Potassium Chlor 20 meq TAB.ER PO ONE (07:50)
[2019-10-16] MEDS: Mometasone/Formoter 200/5 MDI INH SCH (07:55)
[2019-10-16] MEDS ORDERED: Famotidine IV 10 MG/ML 2 ml VIAL (20 mg) IV SLOW PU SCH (09:00)
[2019-10-16] MEDS: KCL 20 MEQ/100 ML IVPREMIX 20 MEQ/100 ML BAG IV SCH ×2 (09:42→12:18)
[2019-10-16] MEDS ORDERED: hydrALAZINE 20 mg/ml 1 ML Vial IV IV SLOW PU PRN (14:03)
[2019-10-16] MEDS ORDERED: hydrALAZINE 20 mg/ml 1 ML Vial IV ONE (14:04)
[2019-10-16 14:18] VITALS: BP 135/77
== END 2019-10-16 15:40 | disposition home or self-care (01) | DRG 916 ==
LOC: ED 19:08 → ICU 22:17
PROVIDERS: ADMIT Pediatrics; ATTEND Surgery Surgical Critical Care